=== PATIENT | male | born 1935 | race Caucasian/White ===

== ENCOUNTER 2019-04-20 07:41 | Inpatient (IN) ==
--- NOTE | 2019-04-20 08:59 | Diag Imaging Result Doc PS360 ---
EXAM: FLAT/UPRIGHT ABD/1 VIEW CHEST HISTORY: possible bowel obstruction TECHNIQUE: Three views COMPARISON: 06/05/2018 FINDINGS: Poor inspiratory effort. The heart is not enlarged. The right portacatheter. No free air beneath the diaphragm. There are multiple air distended loops of bowel in the mid lower abdomen and pelvis. No organomegaly. There are surgical clips in the right upper quadrant. IMPRESSION: Bowel obstruction Electronically signed by Logan Parker 04/20/2019 8:57 AM
[2019-04-20 09:14] LABS: BASO# 0.01 X1000 (0.0-0.2); BASO% 0.2 % (0.0-0.8); HEMATOCRIT 49.7 % (42.0-52.0); HEMOGLOBIN 16.5 g/dL (14.0-18.0); LYMPH% 10.1 % (20.5-51.1); MCH 29.9 PG (27-31); MCHC 33.2 g/dL (33-37); MCV 90.2 FL (81-99); MONO# 1.77 X1000 (0.11-0.59); MONO% 29.8 % (1.7-9.3); MPV 10.5 FL (7.4-10.4); NEUT# 3.56 X1000 (1.4-6.5); NEUT% 59.9 % (42.2-75.2); PLT 196 X1000 (130-400); RBC 5.51 XMIL (4.7-6.1); RDW 18.4 % (11.5-14.5); WBC 5.94 X1000 (4.8-10.8)
[2019-04-20] MEDS ORDERED: NS 1,000 ML IV ONE ×2 (09:16→10:08)
[2019-04-20] MEDS ORDERED: ZOSYN 3.375 GM in NS 50 ML IV ONE (09:16)
[2019-04-20 09:45] LABS: ALB/GLOB RATIO 1.5; ALBUMIN 4.5 g/dL (3.5-5.0); CALCIUM 9.4 mg/dL (8.8-10.2); CREATININE 1.9 mg/dL (0.7-1.2); TOTAL BILIRUBIN 0.9 mg/dL (0.20-1.00); TOTAL PROTEIN 7.5 g/dL (6.3-8.3)
[2019-04-20 09:55] LABS: URINE SOURCE CATH
[2019-04-20 10:05] LABS: BILIRUBIN URINE NEGATIVE (NEGATIVE); BLOOD URINE LARGE (NEGATIVE); COLOR YELLOW; GLUCOSE URINE NEGATIVE (NEGATIVE); KETONE URINE NEGATIVE (NEGATIVE); LEUKOCYTES URINE NEGATIVE (NEGATIVE); NITRITE URINE NEGATIVE (NEGATIVE); PROTEIN URINE 50 mg/dL (NEGATIVE); SP GRAVITY URINE 1.024; TURBIDITY URINE TURBID (CLEAR); UROBILINOGEN URINE 2 mg/dL (NORMAL)
[2019-04-20 10:09] LABS: UR EPITHELIAL CELLS <10 /HPF (<10); URINE BACTERIA NEGATIVE /HPF; URINE RBC TNTC /HPF (<10); URINE WBC <10 /HPF (<10)
[2019-04-20 10:10] LABS: PTT 69.5 Seconds (22.3-41.8)
[2019-04-20 10:15] LABS: INR 5.64; PROTIME 53.1 Seconds (11.0-16.0)
[2019-04-20 10:15] LABS: URINE CASTS NONE SEEN
[2019-04-20 10:21] LABS: BANDS 34 % (0-1); LYMPHS 24 % (21-51); MONO 16 % (1-9); SEGS 22 % (42-75)
--- NOTE | 2019-04-20 10:42 | Diag Imaging Result Doc PS360 ---
EXAM: CT ABDOMEN/PELVIS W/O CONTRAST 04/20/2019 HISTORY: bowel obstruction TECHNIQUE: This exam was performed using automated exposure control, adjustment of mA or kV according to patient size, and/or use of iterative reconstruction technique. COMMENT: The current examination is compared with the previous study of 05/21/2018. There is a pleural-based opacity in the posterior right lower lobe which has decreased in size since the previous study. There are also platelike opacities present in both lower lobes which were not present previously. There is some denser consolidation in the left base anteriorly which was not present previously. This may represent atelectasis or pneumonia. There is pneumobilia which was also present previously. There is marked dilatation of the colon with gas and fluid. This was not the case previously. There is also some fluid and solid material within the stomach. There is no evidence of hydronephrosis or stones in the kidneys. The left adrenal gland is enlarged as it was previously. There is gas and fluid in the rectum. The cecum measures over 14.6 cm transversely. There is no evidence of bowel wall thickening or mucosal fold thickening. There are multiple distended small bowel loops including the terminal ileum. This is likely a result of the colonic stasis. There is no evidence of acute bony abnormality. IMPRESSION: Colonic ileus. Electronically signed by Kp Gold 04/20/2019 10:39 AM
--- NOTE | 2019-04-20 11:09 | Diag Imaging Result Doc PS360 ---
EXAM: CHEST/ABD TUBE PLACEMENT HISTORY: NG placement verification TECHNIQUE: Chest abdomen single view COMPARISON: 04/20/2019 FINDINGS: A nasogastric tube has been placed since the prior exam. This passes through the esophagus and enters the stomach. No free air beneath the diaphragm. There are dilated loops of bowel in the upper abdomen. IMPRESSION: Nasogastric tube overlies the stomach Electronically signed by Logan Parker 04/20/2019 11:07 AM
--- NOTE | 2019-04-20 11:21 | EKG Report ---
Test Performed on : 04/20/2019 08:15:26 AM Test Reason : ED. NO order in [place] Blood Pressure : / mmHG Vent. Rate : 078 BPM Atrial Rate : 129 BPM P-R Int : 000 ms QRS Dur : 096 ms QT Int : 384 ms P-R-T Axes : 000 004 134 degrees QTc Int : 437 ms Atrial fibrillation. with premature ventricular or aberrantly conducted complexes. Inferior infarct , age undetermined ST & T wave abnormality, consider lateral ischemia Abnormal ECG When compared with ECG of 07-MAY-2018 11:06, T wave inversion now evident in Lateral leads Unconfirmed Result
[2019-04-20] MEDS ORDERED: NS 2,000 ML IV ONE (11:29)
[2019-04-20] MEDS ORDERED: ZOFRAN IV PRN (11:29)
--- NOTE | 2019-04-20 14:41 | PROVIDER DOCUMENTATION ---
This chart was entered by Tessa Golden Scribe, acting as scribe for Leilani Cantrell MD. HPI-Abdominal Pain/GI Problem - General Chief Complaint: Abdominal Pain Stated Complaint: abd pain Time Seen by Provider: 04/20/19 08:00 Source: patient Allergies/Adverse Reactions: Patient Allergies Allergy/AdvReac Type Severity Reaction Status Date / Time No Known Allergies Allergy Verified 05/06/17 14:19 Home Medications: Home Medication List Medication Instructions Recorded Confirmed Last Taken Type Alprazolam [Xanax] 1 mg PO BID 02/05/13 04/20/19 04/20/19 07:00 History 1 mg Celecoxib [Celebrex] 1 cap PO DAILY 02/05/13 04/20/19 04/20/19 07:00 History 1 cap Dutasteride [Avodart] 1 cap PO DAILY 02/05/13 04/20/19 04/20/19 07:00 History 1 cap Losartan/Hctz [Hyzaar 100/12.5 mg 0.5 tab PO DAILY 02/05/13 04/20/19 04/20/19 07:00 History Tab] 1/2 tab Tamsulosin [Flomax] 0.4 mg PO DAILY #30 capsule 02/06/13 04/20/19 04/20/19 07:00 Rx 1 cap Cyanocobalamin (Vitamin B-12) 1,000 mcg PO DAILY 04/20/19 04/20/19 04/20/19 07 :00 History [B-12] 1 tab Fish Oil/Dha/Epa [Fish Oil 1,200 1 ea PO BID 04/20/19 04/20/19 04/20/19 07:00 History mg Fish Oil] 1 cap Multivitamin [Multi-Vitamin Daily] 1 tab PO DAILY 04/20/19 04/20/19 04/20/19 07:00 History 1 tab Phytonadione (Vit K1) [Vitamin K] 100 mcg PO DAILY 04/20/19 04/20/19 04/20/19 07:00 History 1 cap Polyethylene Glycol 3350 [Miralax] 17 gm PO DAILY 04/20/19 04/20/19 04/20/19 07:00 History 1 capful Tramadol HCl 50 mg PO Q4-6H PRN PRN 04/20/19 04/20/19 Unknown History Vit B Comp with C/Calcium Carb 1 ea PO DAILY 04/20/19 04/20/19 04/20/19 07:00 History [Gnp B-Complex Tablet] 1 cap Warfarin Sodium 2 mg PO DIRECTED 04/20/19 04/20/19 04/19/19 21:00 History 2 mg Warfarin Sodium 3 mg PO DIRECTED 04/20/19 04/20/19 04/18/19 21:00 History 3 mg Zinc Gluconate [Zinc] 100 mg PO BID 04/20/19 04/20/19 04/20/19 07:00 History 100 mg - History of Present Illness-ABD Nature of Presenting Problems: Patient is a 83 year old male who presents to the ED via EMS with generalized abdominal pain. History of constipation. Reports taking a laxative yesterday due to constipation then started having diarrhea after. Denies nausea and vomiting. Abdominal Pain Onset Location: reports: generalized abdomen Pain Radiation: reports: no radiation Quality of Pain: reports: cramping, fullness Severity in ED: reports: moderate Onset/Duration: reports: 24 hours ago Timing: reports: still present Activities at Onset: reports: light activity Associated Symptoms: reports: diarrhea. denies: nausea, vomiting Rectal Bleeding: reports: none Bruising or Bleeding Gums?: No Similar Symptoms Previously?: Yes Recently seen or treated by another doctor?: No Review of Systems - Adult - REVIEW OF SYSTEMS - ADULT Constitutional: reports: no symptoms reported Eyes: reports: no symptoms reported Ears, Nose, Mouth & Throat: reports: no symptoms reported Cardiovascular: reports: no symptoms reported Respiratory: reports: no symptoms reported Gastrointestinal: reports: see HPI, abdominal pain, diarrhea. denies: nausea, vomiting Genitourinary: reports: no symptoms reported Musculoskeletal: reports: no symptoms reported Integumentary: reports: no symptoms reported Neurological: reports: no symptoms reported Psychiatric: reports: no symptoms reported Endocrine: reports: no symptoms reported Hematologic/Lymphatic: reports: no symptoms reported Allergic/Immunologic: reports: no symptoms reported All Other Systems: Reviewed and Negative Past History - Adult - PAST MEDICAL HISTORY-ADULT Review of Records: reports: Old Records Reviewed, Nursing Assessment Review, Medications Reviewed, Social history reviewed & non-contributory. Major Childhood Illnesses: reports: denies history Cardiovascular: reports: A-Fib, HTN, hyperlipidemia Respiratory: reports: denies history Gastrointestinal: reports: GERD Obstetrical/Gynecological: reports: denies history Genitourinary: reports: kidney stones Musculoskeletal: reports: denies history Neurological: reports: denies history Psychiatric: reports: denies history Endocrine/Immune: reports: denies history Other Conditions: reports: denies history - PRIOR SURGERIES/PROCEDURES Surgical/Procedure History: reports: reviewed, not pertinent, cholecystectomy - IMMUNIZATION STATUS Childhood Immunizations: See Nurse Assessment Flu Vaccine: See Nurse Assessment - FAMILY HISTORY Family History: reviewed, not pertinent - SOCIAL HISTORY Smoking: chew, greater than 1 pack/day Provider spent 3-5 mins advising pt. on dangers of tobacco.: Discussed manners to quit use, and f/u contacts for add'l counseling. Substance Use: denies Physical Exam-General - PHYSICAL EXAM-ADULT Initial Vital Signs Reviewed: Yes - CONSTITUTIONAL General Appearance: mild distress, lethargic. negative: obtunded - HEAD, EARS, NOSE, MOUTH & THROAT HENMT: normocephalic/atraumatic, other (dry mucous membranes). negative: angioedema - RESPIRATORY Respiratory: chest non-tender, lungs clear, normal breath sounds. negative: crackles, wheezing - CARDIOVASCULAR Cardiovascular: normal peripheral pulses, regular rate, rhythm. negative: tachycardia - GASTROINTESTINAL (ABDOMEN) Abdominal Exam: normal bowel sounds, distended, tenderness (diffuse). negative: mass - MUSCULOSKELETAL Extremity: normal inspection. negative: deformity, pedal edema - SKIN Integumentary: normal color, normal turgor, warm/dry. negative: diaphoresis, pallor - PSYCHIATRIC Psych/Mental Status: other (lethargic). negative: normal mood/affect, anxious Progress - PLAN OF CARE/RESULTS Progress/Plan/Lab Results: Vital Signs - 8 hr 04/20/19 07:47 Temperature 98.9 F Pulse Rate 91 H Respiratory Rate 16 Blood Pressure 84/61 O2 Sat by Pulse Oximetry 94 L Laboratory Results - last 24 hr 04/20/19 04/20/19 04/20/19 08:10 08:10 08:10 WBC 5.94 RBC 5.51 Hgb 16.5 Hct 49.7 MCV 90.2 MCH 29.9 MCHC 33.2 RDW Std Deviation 18.4 H Plt Count 196 MPV 10.5 H Immature Gran % (Auto) 0.0 Neut % (Auto) 59.9 Lymph % (Auto) 10.1 L [place] % (Auto) 29.8 H Eos % (Auto) 0.0 Baso % (Auto) 0.2 Immature Gran # (Auto) 0.00 Neut # (Auto) 3.56 Lymph # (Auto) 0.60 L [place] # (Auto) 1.77 H Eos # (Auto) 0.00 Baso # (Auto) 0.01 PTT (Actin FS) Sodium 137 Potassium 3.0 L Chloride 95 L Carbon Dioxide 19 L Anion Gap 23 BUN 54 H Creatinine 1.9 H Estimated GFR/1.73 m2 34 BUN/Creatinine Ratio 28 Glucose 163 H Calculated Osmolality 292 Calcium 9.4 Total Bilirubin 0.90 AST 54 H ALT 39 Alkaline Phosphatase 67 Creatine Kinase 119 Troponin T Total Protein 7.5 Albumin 4.5 Globulin 3.0 Albumin/Globulin Ratio 1.5 Plasma Lactate 4.3 H* Urine Source Urine Color Urine Turbidity Urine pH Ur Specific [place] Urine Protein Ur Glucose (Stick) Ur Ketones (Stick) Urine Blood Urine Nitrite Urine Bilirubin Urobilinogen Dipstick Urine Leukocytes Urine WBC (Auto) Urine RBC (Auto) U Epithel Cells (Auto) Urine Bacteria (Auto) 04/20/19 04/20/19 04/20/19 08:10 08:10 09:41 WBC RBC Hgb Hct MCV MCH MCHC RDW Std Deviation Plt Count MPV Immature Gran % (Auto) Neut % (Auto) Lymph % (Auto) [place] % (Auto) Eos % (Auto) Baso % (Auto) Immature Gran # (Auto) Neut # (Auto) Lymph # (Auto) [place] # (Auto) Eos # (Auto) Baso # (Auto) PTT (Actin FS) 69.5 H Sodium Potassium Chloride Carbon Dioxide Anion Gap BUN Creatinine Estimated GFR/1.73 m2 BUN/Creatinine Ratio Glucose Calculated Osmolality Calcium Total Bilirubin AST ALT Alkaline Phosphatase Creatine Kinase Troponin T < 0.010 Total Protein Albumin Globulin Albumin/Globulin Ratio Plasma Lactate Urine Source CATH Urine Color YELLOW Urine Turbidity TURBID Urine pH 5.0 Ur Specific [place] 1.024 Urine Protein 50 A Ur Glucose (Stick) NEGATIVE Ur Ketones (Stick) NEGATIVE Urine Blood LARGE A Urine Nitrite NEGATIVE Urine Bilirubin NEGATIVE Urobilinogen Dipstick 2 A Urine Leukocytes NEGATIVE Urine WBC (Auto) <10 Urine RBC (Auto) TNTC A U Epithel Cells (Auto) <10 Urine Bacteria (Auto) NEGATIVE Orders Category Date Time Status Cardiac Monitoring DIRECTED Care 04/20/19 08:03 Active IV Insertion ORDERED Care 04/20/19 08:03 Active NG/OG/Feeding Tube Insertion ORDERED Care 04/20/19 09:31 Active Notify MD of + Sepsis Screen NOW Care 04/20/19 08:[address] ABDOMEN/PELVIS W/O CONTRAST [CT] Stat Exams 04/20/19 09:15 Ordered FLAT/UPRIGHT ABD/1 VIEW CHEST [RAD] Stat Exams 04/20/19 08:03 Completed BLOOD CULTURE [BLDCUL] Stat Lab 04/20/19 08:25 Results CBC WITH DIFF [HEME] Stat Lab 04/20/19 08:10 Results CK PROFILE [SP CHEM] Stat Lab 04/20/19 08:10 Completed COMPREHENSIVE METABOLIC PANEL [CHEM] Stat Lab 04/20/19 08:10 Completed LACTATE, PLASMA [CHEM] Lab 04/20/19 11:15 Uncollected LACTATE, PLASMA [CHEM] Lab 04/20/19 14:15 Uncollected LACTATE, PLASMA [CHEM] Q3H Lab 04/20/19 08:10 Completed PROTIME WITH INR [COAG] Stat Lab 04/20/19 08:10 Results PTT [COAG] Stat Lab 04/20/19 08:10 Results TROPONIN T Stat Lab 04/20/19 08:10 Completed URINALYSIS W/POSS RFLX CULT [URINALYSIS] Stat Lab 04/20/19 09:41 Results URINE MANUAL MICROSCOPIC [URINALYSIS] Stat Lab 04/20/19 09:41 Results 0.9% Sodium Chloride Inj [Ns] 1,000 ml Med 04/20/19 09:16 Active IV 999 mls/hr 0.9% Sodium Chloride Inj [Ns] 1,000 ml Med 04/20/19 10:08 Active IV 999 mls/hr Piperacillin/Tazobactam [Zosyn] 3.375 gm Med 04/20/19 09:16 Discontinued 0.9% Sodium Chloride Inj [Ns] 50 ml IV NOW Oxygen Device Stat Oth 04/20/19 08:03 Active Result Diagrams: 04/20/19 08:10 04/20/19 08:10 - EKG 1 Time of EKG reading by physician:: 08:15 EKG Read and Signed by:: Leilani Cantrell EKG Interpretation (*Must complete 3 of following elements*): Abnormal (rhythm - atrial fibrillation with premature ventricular or aberrantly conducted complexes; ST & T wave abnormality, consider lateral ischemia) Rate: 78 [place]: normal Comments: inferior infarct, age undetermined; - XRAY 1 XRAY Study: Chest, Abdomen Impression: See EMR Report (EXAM: FLAT/UPRIGHT ABD/1 VIEW CHEST HISTORY: possible bowel obstruction TECHNIQUE: Three views COMPARISON: 06/05/2018 FINDINGS: Poor inspiratory effort. The heart is not enlarged. The right portac atheter. No free air beneath the diaphragm. There are multiple air distended loops of bowel in the mid lower abdomen and pelvis. No organomegaly. There are surgical clips in the right upper quadrant. IMPRESSION: Bowel obstruction Electronically signed by Logan Parker 04/20/2019 8:57 AM 04/20/19 0857 Interpreting Physician: Logan Parker MD Dictated Date/Time: 04/20/19 0856 cc: Leilani Cantrell MD; Hua Stewart MD) 2 XRAY Study: Chest, Abdomen (tube placement) Impression: See EMR Report ( EXAM: CHEST/ABD TUBE PLACEMENT HISTORY: NG placement verification TECHNIQUE: Chest abdomen single view COMPARISON: 04/20/2019 FINDINGS: A nasogastric tube has been placed since the prior exam. This passes through the esophagus and enters the stomach. No free air beneath the diaphragm. There are dilated loops of bowel in the upper abdomen. IMPRESSION: Nasogastric tube overlies the stomach Electronically signed by Logan Parker 04/20/2019 11:07 AM 04/20/19 1107 Interpreting Physician: Logan Parker MD Dictated Date/Time: 04/20/19 1107 cc: Leilani Cantrell MD; Hua Stewart MD) - CT/MRI 1 CT Study: Abdomen, Pelvis Impression: See EMR Report (Signed EXAM: CT ABDOMEN/PELVIS W/O CONTRAST 04/20/2019 HISTORY: bowel obstruction TECHNIQUE: This exam was performed using automated exposure control, adjustment of mA or kV according to patient size, and/or use of iterative reconstruction technique. COMMENT: The current examination is compared with the previous study of 05/21/2018. There is a pleural-based opacity in the posterior right lower lobe which has decreased in size since the previous study. There are also platelike opacities present in both lower lobes which were not present previously. There is some denser consolidation in the left base anteriorly which was not present previously. This may represent atelectasis or pneumonia. There is pneumobilia which was also present previously. There is marked dilatation of the colon with gas and fluid. This was not the case previously. There is also some fluid and solid material within the stomach. There is no evidence of hydronephrosis or stones in the kidneys. The left adrenal gland is enlarged as it was previously. There is gas and fluid in the rectum. The cecum measures over 14.6 cm transversely. There is no evidence of bowel wall thickening or mucosal fold thickening. There are multiple distended small bowel loops including the terminal ileum. This is likely a result of the colonic stasis. There is no evidence of acute bony abnormality. IMPRESSION: Colonic ileus. Electronically signed by Kp Gold 04/20/2019 10:39 AM 04/20/19 1039 Interpreting Physician: Kp Gold MD Dictated Date/Time: 04/20/19 1034 cc: Leilani Cantrell MD; Hua Stewart MD) - CONSULTS/PCP/HOSPITALIST Notification #1 *Consult/PCP/Hospitalist*: Dr. Stewart Time Discussed: 11:09 Reason/Comments: Dr. Cantrell consulted with Dr. Stewart about patient. Consult Disposition: Will see in ED, Admit Departure - Departure Date of Disposition Decision: 04/20/19 Time of Disposition Decision: 11:09 DIAGNOSIS: Colonic inertia Disposition: ADMITTED INPATIENT 09 Certified Medical Emergency: Emergent Condition: Stable Referrals and Follow-Ups: Hua Stewart MD [Primary Care Provider] - - Critical Care Note This patient required my direct & personal management of CC.: No Attestation - Physician/ [place] Attestation The physician spent face to face time with patient:: Yes Advanced Practice Provider documentation review:: Supervising physician onsite and consulted in the evaluation and care of this patient. The physician did have a face to face encounter with the patient. This chart was documented by the indicated scribe, (Tessa Golden Scribe) and accurately reflects the services I performed and decisions made by me, Leilani Cantrell MD, as attested by the provider's signature.
[2019-04-20] MEDS ORDERED: POTASSIUM CHLORIDE 40 MEQ/SWI 40 MEQ/100 ML IVPB IV ONE (21:25)
[2019-04-20] MEDS: MAGNESIUM SULFATE 2 GM/S.W.I. 2 GM/50 ML IVPB IV ONE (23:18)
[2019-04-21] MEDS: MAGNESIUM SULFATE 2 GM/S.W.I. 2 GM/50 ML IVPB IV ONE (01:19)
[2019-04-21 07:40] LABS: AGAP 16; ALB/GLOB RATIO 1.4; ALBUMIN 3.8 g/dL (3.5-5.0); ALKALINE PHOSPHATASE 57 U/L (32-122); BUN 67 mg/dL (8-22); CHLORIDE 103 mmol/L (98-107); COSMO 300; ESTIMATED GFR > 60; GLUCOSE 129 mg/dL (70-104); GOT 40 U/L (10-34); GPT 32 U/L (10-44); SODIUM 140 mmol/L (136-145); TCO2 21 mmol/L (25-35); TOTAL BILIRUBIN 0.75 mg/dL (0.20-1.00); TOTAL PROTEIN 6.6 g/dL (6.3-8.3)
[2019-04-21 07:59] LABS: POTASSIUM 2.5 mmol/L (3.5-5.1)
[2019-04-21 08:13] LABS: HEMATOCRIT 45.3 % (42.0-52.0); HEMOGLOBIN 15.3 g/dL (14.0-18.0); IMM GRAN# 0.04 X1000 (0.0-0.04); IMM GRAN% 0.6 % (0.0-0.5); LYMPH# 0.95 X1000 (1.2-3.4); LYMPH% 13.8 % (20.5-51.1); MCHC 33.8 g/dL (33-37); MCV 88.8 FL (81-99); MONO% 21.8 % (1.7-9.3); MPV 10.5 FL (7.4-10.4); NEUT# 4.39 X1000 (1.4-6.5); NEUT% 63.8 % (42.2-75.2); PLT 149 X1000 (130-400); RDW 18.3 % (11.5-14.5); WBC 6.88 X1000 (4.8-10.8)
[2019-04-21 08:37] LABS: BANDS 18 % (0-1); LYMPHS 34 % (21-51); MONO 10 % (1-9); SEGS 34 % (42-75)
[2019-04-21] MEDS ORDERED: NS 3,000 ML IV ONE (09:27)
[2019-04-21] MEDS: POTASSIUM CHLORIDE 60 MEQ in NS 500 ML IV SCH ×2 (09:54→16:50)
--- NOTE | 2019-04-21 11:40 | Diag Imaging Result Doc PS360 ---
EXAM: FLAT/UPRIGHT ABD/1 VIEW CHEST 04/21/2019 HISTORY: ileus TECHNIQUE: Flat and upright abdomen and AP upright chest COMMENT: There is a fairly large amount of colonic gas. This was also present previously on 04/20/2019. The cecum measures over 15 cm in transverse dimension. IMPRESSION: Colonic ileus. Electronically signed by Kp Gold 04/21/2019 11:38 AM
--- NOTE | 2019-04-21 12:37 | PROGRESS NOTE ---
DATE: 04/21/2019 SUBJECTIVE: The patient and family states that he is somewhat better today. He continues to have a fairly copious or rectal output of liquid contents. He denies any abdominal pain. OBJECTIVE: Vital Signs: 98.1, 91, 20, 153/99, and 100% saturated on room air. General: The patient is awake and alert. He is in no distress. Lungs: Clear to auscultation. Cardiovascular: Irregularly irregular at approximately 90 beats per minute. Abdomen: Shows reduction in the overall girth. The texture of the abdominal wall is much looser, but it is still distended. He has very little in the way of bowel sounds which are actually barely detectable. He is nontender in any of the quadrants. LABORATORY: White cell count 6.8, hemoglobin 15.3, potassium is 2.5, BUN 67, and creatinine 1.0. ASSESSMENT AND PLAN: 1. I am going to consult Dr. Antunez and Dr. Colon for possible colonic obstruction. There was no mention of the patient's rectal mass in the CT scan from yesterday. The initial CT scan did show that is obstructed 75 to 90 percent of the lumen at the proximal rectosigmoid junction. Dr. Antunez's notes do not really reflect any progression or regression with treatment. If the patient's symptoms do not resolve after being treated as an ileus, we may have to consider the possibility of diverting colostomy. 2. Inexplicably. The patient's potassium is down from yesterday despite getting magnesium and potassium through the IV. I have written for more IV riders to be given today to try and correct that. I am sure the liquid stool output has contributed to this as well. 3. The patient's creatinine is markedly improved, but unfortunately the BUN is elevated. This could be indicative of GI bleed. We did note that the patient's ProTime and INR were elevated on admission. We will recheck this tomorrow. His anticoagulants have been held. 4. DNR level 1. 5. Atrial fibrillation, stable. 6. Metabolic syndrome. We are aware and following. cc: Hua Stewart MD
[2019-04-21] MEDS ORDERED: CALMOSEPTINE OINTMENT TOP PRN (13:25)
[2019-04-21] MEDS: NS 1,000 ML IV SCH (13:46)
--- NOTE | 2019-04-21 15:02 | HISTORY AND PHYSICAL ---
CHIEF COMPLAINT: Abdominal distention. HISTORY OF PRESENT ILLNESS: This 83-year-old white male has multiple medical problems, which will be delineated below. Last Saturday, the patient began to have a sensation of constipation and took a laxative. His abdomen began to swell and despite the urging of his family he refused to come in. Instead, he was incapacitated by Saturday morning, and they had to call an ambulance to bring him to the hospital. Initial evaluation by the ER, found the patient to have a markedly distended abdomen. Flat and upright series showed marked distention of the colon and filled with air with some fluid levels present. CT scan showed no sign of mechanical obstruction, and was most consistent with an ileus, but again the marked distention of the colon was noted. 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 He agreed the patient has not had any fever. He has had no cough, wheezing or shortness of breath. He has had nausea. No vomiting. He has had abdominal distention and pain. They report liquid diarrhea. He is not taking any other medications over- the-counter or otherwise other than his prescription medications. He is not on narcotics to my knowledge. Laboratory studies from the emergency room showed an elevated lactate, and elevated BUN and creatinine, low CO2, and low potassium. He is admitted for ileus and abdominal distention. PAST MEDICAL HISTORY: 1. Hypertension. 2. Hypercholesterolemia. 3. Degenerative arthritis of the hips. 4. Remote history of prostatitis. 5. Atrial fibrillation, chronic with rate control. 6. Chronic anticoagulation. 7. 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 8. Metastatic rectal cancer with single lung nodule being treated by DR. Antunez at present. PAST SURGICAL HISTORY: 1. Right cataract surgery. 2. Laparoscopic cholecystectomy. 3. ERCP with sphincterotomy. PRESENT MEDICATIONS: 1. Avodart 0.5 mg p.o. daily. 2. Celebrex 200 mg p.o. daily. 3. Coumadin 5 mg p.o. at bedtime. 4. Flomax 0.4 mg p.o. daily. 5. Hyzaar 100/12.5 1 p.o. daily. 6. Xanax 1 mg p.o. every morning, 1 p.o. q.8 h. 7. Pravastatin 40 mg p.o. at bedtime. ALLERGIES: No known drug allergies. REVIEW OF SYSTEMS: As stated earlier, there is no fever or chills. The patient's weight has been stable. Patient and family agree there were no ENT complaints such as upper respiratory infection, sore throat etc. He had no cough, wheezing or shortness of breath. He denies any chest pain or palpitations.GI: Tract was described as in the HPI. He denies any gross blood per rectum or black tarry stools. : The patient has had frequent urination, but his pattern of urination has not really changed over this time frame. The patient has no other musculoskeletal or neurological complaints. PHYSICAL EXAMINATION: VITAL SIGNS: Initially, 98.9, 91, 16, 84/61, and 94% saturated on room air. GENERAL: The patient is a very large man who is approximately 6 foot 5 inches or 6 foot 6 inches. He is lying in the bed. He is awake and alert. Does not appear to be in any distress, but his abdomen is markedly swollen. HEENT: Sclerae are anicteric. Oral mucosa is dry, but does not appear parched. NECK: No carotid bruits. LUNGS: Clear to auscultation. CARDIOVASCULAR: Irregularly irregular at approximately 90 beats per minute. ABDOMEN: Markedly distended. Appears firm to the touch. Percussion is tympanic. He has a few rare scattered high pitched bowel sounds present. There is otherwise absence of bowel sounds. He does not seem particularly tender in any one particular place. The exam is not undertaken. EXTREMITIES: No peripheral edema with arthritis in the feet, hands and knees. NEUROLOGICAL: Patient's hearing is bad , speech might sound dysarthric, but this has been present for the 20 plus years that I have known the man. It is just a very odd christopher and method of annunciating his words. He sounds very unintelligible at times as a result. LABORATORY STUDIES: White cell count 5.9, hemoglobin 16.5, and hematocrit 49.7. INR is 5.64. Sodium 137, potassium 3.0, BUN 54, creatinine 1.9, glucose 163, and AST is 54. CK and troponin were negative. Plasma lactate was initially 4.3 and later rechecked at 2.7. Urinalysis showed large urine blood, but no evidence of infection. ASSESSMENT AND PLAN: 1. The patient will be admitted to the hospital. NG tube will be placed on low intermittent suction. Hopefully, we can decompress this ileus. We have to consider the fact that the patient also has a rectal carcinoma and possibility of mechanical obstruction cannot be overall ruled. This did not appear to be the case on CT scan, but that does not always tell the whole story. There are no obvious signs of infection which could lead to a garden- variety ileus. We will recheck lab work, and a KUB in the morning. 2. The patient is markedly dehydrated despite the fact that he was immobilized and not eating very much. He continued to take his blood pressure medication which contains diuretic. This would account for his elevated BUN and creatinine, which is roughly doubled his last one recorded in the computer. I will have to check my records to confirm his baseline creatinine. We have given him a 2 L bolus of fluids, and will have continuous fluids going as well and recheck those levels in the morning. At the time of my examination, later on the afternoon of his admission, the patient's blood pressures are already improved considerably, and his family commented that he seemed much better with just the addition of fluids although the abdominal distention and watery output had not subsided. 3. The patient has atrial fibrillation. He is over anticoagulated. His medications will be held for the present time, and we will add those back as appropriate and necessary. 4. Patient's nerve medication will be given in an IV format. 5. The family member with the patient stated that they had durable power of assistant district attorney. It had been discussed about the patient's living will, and he does not want to be on a ventilator. We have made him a DNR level 1. 6. Most likely, the patient will be discharged to home at the end of this hospitalization. cc: Hua Stewart MD
--- NOTE | 2019-04-22 02:48 | CONSULTATION ---
DATE OF CONSULTATION: 04/21/2019 HISTORY OF PRESENT ILLNESS: Mr. Gurdeep Nicholas is an 83-year-old white male, patient of Dr. Ike Stewart, who several years ago I performed a laparoscopic cholecystectomy. Since that time, he has been diagnosed with metastatic rectal cancer. Evidently he has a rectal cancer at the rectosigmoid junction with metastases to his lung. He is being treated by Dr. Antunez. He was admitted with dehydration and abdominal distention. CT scan documented significant dilatation of his colon, which could be related to his rectal mass. We were asked to evaluate him. PAST MEDICAL HISTORY: Laparoscopic cholecystectomy with ERCP and sphincterotomy, right cataract surgery, hypertension, hypercholesterolemia, degenerative arthritis of the hips, prostatitis, chronic atrial fibrillation with rate control, chronic anticoagulation related to his atrial fibrillation, metabolic syndrome bordering on diabetes, and metastatic rectal cancer. MEDICATIONS: 1. Avodart. 2. Celebrex. 3. Coumadin. 4. Flomax. 5. Hyzaar. 6. Xanax. 7. Pravastatin. ALLERGIES: No known drug allergies. SOCIAL HISTORY: He lives at home with a girlfriend. One of his neighbors was at the bedside. FAMILY HISTORY: Reviewed as best as I could with the patient and was essentially negative. REVIEW OF SYSTEMS: Performed, he has had no significant weight loss, seemed to have been eating well prior to this episode. His weight has been stable. A 14-point review of systems was reviewed with the patient as best as possible and was essentially negative. PHYSICAL EXAMINATION: General: Mr. Nicholas is an elderly white male who is difficult to understand. HEENT: He has an NG tube in place. He has no jaundice. No oral lesions. Lymphatic: No cervical or supraclavicular lymphadenopathy. Cardiovascular: His heart has an irregular rate. Lungs: Essentially clear to auscultation and percussion bilaterally. Gastrointestinal: His abdomen was somewhat protuberant, but not tightly distended. There was no tenderness, no costovertebral tenderness. Rectal exam was not performed at this exam. He does have palpable femoral pulses. Extremities: He had no significant peripheral edema. Neurological: No focal deficit. DIAGNOSTIC STUDIES: His potassium is low but that is being corrected. I reviewed his CT scan, which showed a dilated colon throughout its length. He did have fluid and air in his rectum. IMPRESSION: Metastatic rectal cancer, rectosigmoid junction with dilatation of the entire length of the colon. Possible partial obstruction versus colonic ileus. The patient does have to take chronic laxatives. His cancer is being treated by Dr. Antunez and I do not know the details of that treatment. Clinically, it sounds like he has improved since his admission with decreased abdominal distention and he reports multiple bowel movements and flatus per rectum throughout the day. PLAN: I think if he continues to clinically improve we can remove his NG tube and begin a diet. I agree with Dr. Stewart that if his obstruction does not improve and it is related to his cancer, it would have to be resected. cc: MD Hua Brewster MD
[2019-04-22] MEDS: NS 1,000 ML IV SCH ×2 (06:15→16:52)
[2019-04-22 07:04] LABS: HEMATOCRIT 44.1 % (42.0-52.0); HEMOGLOBIN 14.8 g/dL (14.0-18.0); LYMPH# 0.67 X1000 (1.2-3.4); LYMPH% 10.2 % (20.5-51.1); MCH 30.4 PG (27-31); MCHC 33.6 g/dL (33-37); MCV 90.6 FL (81-99); MONO# 1.15 X1000 (0.11-0.59); MONO% 17.4 % (1.7-9.3); MPV 10.8 FL (7.4-10.4); NEUT# 4.78 X1000 (1.4-6.5); NEUT% 72.4 % (42.2-75.2); PLT 160 X1000 (130-400); RBC 4.87 XMIL (4.7-6.1)
[2019-04-22 07:25] LABS: ESTIMATED GFR > 60
[2019-04-22 07:27] LABS: AGAP 13; BUN 56 mg/dL (8-22); CALCIUM 7.5 mg/dL (8.8-10.2); CHLORIDE 112 mmol/L (98-107); COSMO 308; CREATININE 0.7 mg/dL (0.7-1.2); GLUCOSE 136 mg/dL (70-104); MAGNESIUM 2.8 mg/dL (1.5-2.7); POTASSIUM 2.6 mmol/L (3.5-5.1); SODIUM 146 mmol/L (136-145); TCO2 21 mmol/L (25-35)
[2019-04-22] MEDS ORDERED: MAGNESIUM SULFATE 2 GM/S.W.I. 2 GM/50 ML IVPB IV ONE (09:44)
[2019-04-22 09:46] LABS: PTT 73.9 Seconds (22.3-41.8)
[2019-04-22 10:11] LABS: INR 8.47; PROTIME 73.5 Seconds (11.0-16.0)
[2019-04-22] MEDS: POTASSIUM CHLORIDE 40 MEQ/SWI 40 MEQ/100 ML IVPB IV SCH ×2 (10:32→17:44)
--- NOTE | 2019-04-22 12:30 | PROGRESS NOTE ---
DATE: 04/22/2019 SUBJECTIVE: The patient and family member states that he is much improved. He is hungry. I discussed with Dr. Colon's consult with the family and stressed the fact that this appears to be resolving, but if it does not or we have to go back to the NG tube, he may need a colon resection with colostomy. OBJECTIVE: Vital signs: Temperature 97.2, 82, 18, blood pressure 178/74, 96% saturated on room air. General: The patient is alert. Seems oriented. Communication is difficult due to his speech. Lungs: Clear to auscultation. Cardiovascular: Regularly irregular. Abdomen: Shows decreased distention, although he is still distended and air filled. He has much more in the way of bowel sounds, particularly with palpation, but the bowel sounds are high pitched indicating continued tension in the colonic wall. Overall, his exam is much improved from admission. LABORATORY DATA: White cell count 6.6, hemoglobin 14.8, potassium 2.6, CO2 21, BUN 56, creatinine 0.7, glucose 136, magnesium is 2.8. ASSESSMENT AND PLAN: 1. The patient's colonic ileus or obstruction seems to be resolving. I plan to pull the NG tube and try the patient on clear liquids and restart some of his home medications and see how he does. 2. Dr. Antunez's team saw the patient today. We will see if there is anything else to add to the treatment plan based on that consultation. 3. Potassium is still incredibly low despite repletion. Magnesium is normal to high. I plan to replete this again by intravenous means, maybe removing the NG tube and slowing down his stooling will improve the potassium as well. I suspect the initial culprit was driven by the hydrochlorothiazide and his blood pressure medication. We are not starting that back yet. 4. The patient's creatinine has recovered. BUN is still slightly elevated. 5. Atrial fibrillation, stable. 6. Metabolic syndrome, stable. 7. Hypertension. We are gong to start the patient back on Flomax and Avodart as well as his Xanax and see what happens to his blood pressure before restarting actual antihypertensive medication. 8. Do not resuscitate level 1. cc: Hua Stewart MD
--- NOTE | 2019-04-22 16:14 | HEMO/ONC CONSULTATION ---
DATE: 04/22/2019 REASON FOR CONSULTATION: He is a known patient of ours with the treatment of metastatic rectal carcinoma. HISTORY OF PRESENT ILLNESS: Mr. Nicholas is an 83-year-old male with multiple medical problems to include metastatic rectal carcinoma. Last Saturday the patient states he began to have a sensation of constipation and took a laxative. His abdomen began to swell. By Saturday he was unable to walk, and they had to call an ambulance to bring him to the hospital. Upon evaluation in the ER, the patient had a markedly distended abdomen. Flat and upright series show marked distention of the colon filled with air and some fluid levels present. CT scan showed no sign of mechanical obstruction and was most consistent with an ileus, but again, the marked distention of the colon was noted. The patient denies any fever. He states since he has been in the hospital, he has continued to have several bowel movements a day. They are small in volume. He states that some of them have watery and almost clear as water. His abdomen is greatly decreased in distention, but still full. He denies any pain with palpation. The patient is known to complain of constipation and take a laxative and then take Imodium when he thinks he is having too many bowel movements. He rotates between these 2 medicines despite education and reeducation. The patient is very difficult to communicate with due to very poor hearing. The patient has a speech deficit, which is very difficult to understand at times. His significant other can sometimes translate for him. He was admitted for possible ileus. We treat the patient in the office for metastatic rectal carcinoma. The patient receives treatment with 5-FU and Mvasi. His last treatment was on 04/07/2019. The patient's last PET scan was 03/03/2019, which showed persistent increased activity in the sigmoid colon and foci of new increased activity in the splenic flexure of the colon. The patient is also on Coumadin for atrial fibrillation. We check his PT and INR on a weekly basis. Currently, he takes Coumadin 2 mg Saturday, Saturday and and then 4 mg Saturday through Saturday. The patient is also on Xgeva for bone metastasis. PAST MEDICAL HISTORY: Hypertension, hypercholesterolemia, degenerative arthritis of the hips, remote history of prostatitis, atrial fibrillation that is chronic with rate control on Coumadin, chronic anticoagulation, metabolic syndrome bordering on diabetes, metastatic rectal cancer with single lung nodule under current therapy. PAST SURGICAL HISTORY: Right cataract surgery, laparoscopic cholecystectomy, ERCP with sphincterotomy. ALLERGIES: No known drug allergies. HOME MEDICATIONS: Avodart, Celebrex, Coumadin, Flomax, Hyzaar, Xanax, and pravastatin. REVIEW OF SYSTEMS: Alternating constipation and diarrhea, abdominal distention and pain. PHYSICAL EXAMINATION: Vital Signs: Temperature 97.7 degrees, pulse rate 78, respiratory rate 17, blood pressure 157/71, O2 saturation 98% on room air, 0/10 pain. General: This is a chronically ill elderly gentleman who is difficult to understand, but does not appear to be in any distress. HEENT: Sclerae is anicteric. Oral mucosa is dry. PERRLA. Respiratory: Lungs are clear to auscultation. Normal respiratory effort. Cardiovascular: Irregular rate and rhythm. Gastrointestinal: Abdomen is distended, soft to touch, very hypoactive bowel sounds. Not tender to palpation. Extremities: No lower extremity edema noted. Neurological: The patient is very hard of hearing. Speech is garbled laboratory. DIAGNOSTIC DATA: Laboratory, WBCs 6.6, hemoglobin 14.8, hematocrit 44.1, platelet count 160,000. INR 8.47. Sodium 146, potassium 2.6, creatinine 0.7, calcium 7.5, magnesium 2.8. Radiology, abdominal x-ray shows colonic ileus. ASSESSMENT AND PLAN: 1. Ileus. 2. Metastatic rectal carcinoma. 3. Atrial fibrillation on anticoagulation. PLAN: The patient has an NG tube in place. His abdominal distention has greatly improved since his admission yesterday. He states he has had several bowel movements daily. He is passing flatus. He has no pain in his abdomen at this time. It appears he has been over-anticoagulated. Continue to hold his Coumadin until his INR decreases. Continue to rehydrate the patient, replete his potassium. We will continue to follow and monitor. Dictated by DERRELL Oleary for Porter Antunez MD cc: MD Hua Magallanes MD [facility]PITALFrancie
[2019-04-22] MEDS: XANAX PO SCH (20:57)
[2019-04-23] MEDS: NS 1,000 ML IV SCH (06:56)
[2019-04-23 07:12] LABS: PROTIME 77.2 Seconds (11.0-16.0)
[2019-04-23 07:13] LABS: INR 9.02
[2019-04-23 07:20] LABS: AGAP 11; BUN 40 mg/dL (8-22); CALCIUM 7.6 mg/dL (8.8-10.2); CHLORIDE 116 mmol/L (98-107); COSMO 312; CREATININE 0.7 mg/dL (0.7-1.2); ESTIMATED GFR > 60; GLUCOSE 113 mg/dL (70-104); SODIUM 152 mmol/L (136-145); TCO2 25 mmol/L (25-35)
[2019-04-23 07:27] LABS: POTASSIUM 2.3 mmol/L (3.5-5.1)
[2019-04-23] MEDS ORDERED: VITAMIN K SUBQ ONE (07:40)
[2019-04-23] MEDS: POTASSIUM CHLORIDE 60 MEQ in NS 500 ML IV SCH ×2 (08:14→15:00)
[2019-04-23] MEDS: AVODART PO SCH (08:23)
[2019-04-23] MEDS: FLOMAX PO SCH (08:23)
[2019-04-23] MEDS: XANAX PO SCH ×2 (08:25→20:35)
--- NOTE | 2019-04-23 10:05 | PROGRESS NOTE ---
DATE: 04/23/2019 SUBJECTIVE: The patient complains vociferously about clear liquid diet and stated that he wanted food. He also wanted to know when he could go home. I had discussion with the patient and his family as to the lab values and other physical findings which were keeping him in the hospital. VITAL SIGNS: Temperature 98.0, pulse 68, respirations 19, blood pressure 182/83, 97% saturated on room air. PHYSICAL EXAMINATION: General: The patient is alert, oriented, conversive and appropriate. His speech is difficult to understand. Lungs: Clear. Cardiovascular: Irregularly irregular. Abdomen: Still distended. Bowel sounds are prominent, but still high-pitched as if the colon was distended with air. LABORATORY: INR was 9.02. Potassium 2.3, BUN 40, creatinine 0.7, blood sugar 113. ASSESSMENT AND PLAN: 1. The patient's colonic ileus or obstruction seems to be continuing to resolve. We pulled the NG tube and he is taking p.o. fairly well. Physical exam is improved but he still seems distended compared to baseline. He does not really have any abdominal pain, although he does have occasionally cramps in his abdomen. 2. Inexplicably the patient's potassium was still incredibly low despite multiple efforts at repletion. I really have no explanation for this since he is off of his diuretic and it seems that his bowel output is slowing down. We have also pulled the NG tube, which may have been contributing. 3. The patient's pro-time is still inexplicably going up despite not getting any warfarin for multiple days. The patient's family stated that this has been a problem since he started on chemo. He is still off warfarin. We have given him vitamin K subcu today. 4. The patient's creatinine and BUN have recovered. 5. Atrial fibrillation, stable. 6. Metabolic syndrome, stable. 7. Hypertension. Seems to be accelerating a bit. We are starting back on losartan without the diuretic and monitor his blood pressure. He is back on Flomax and Avodart as well as his Xanax. 8. Do not resuscitate level 1. cc: Hua Stewart MD
[2019-04-23] MEDS: COZAAR PO SCH (10:40)
[2019-04-23] MEDS: CELEBREX PO SCH (10:41)
--- NOTE | 2019-04-23 19:40 | PROGRESS NOTE ---
DATE: 04/23/2019 Mr. Gurdeep Nicholas's colonic ileus appears to have resolved. He has had multiple bowel movements and was sitting up eating his lunch when I went by there today. He has no abdominal pain. His abdomen appears to be soft. I agree with the current care of increasing his diet and activity, in hopes to send him home shortly. cc: MD Hua Brewster MD
[2019-04-24 08:15] LABS: INR 3.67; PROTIME 37.6 Seconds (11.0-16.0)
[2019-04-24 08:16] LABS: ESTIMATED GFR > 60
[2019-04-24 08:23] LABS: AGAP 10; BUN 32 mg/dL (8-22); CALCIUM 7.8 mg/dL (8.8-10.2); CHLORIDE 118 mmol/L (98-107); COSMO 312; CREATININE 0.7 mg/dL (0.7-1.2); GLUCOSE 101 mg/dL (70-104); MAGNESIUM 2.7 mg/dL (1.5-2.7); SODIUM 154 mmol/L (136-145); TCO2 26 mmol/L (25-35)
[2019-04-24 08:24] LABS: POTASSIUM 2.5 mmol/L (3.5-5.1)
[2019-04-24] MEDS ORDERED: VITAMIN K SUBQ ONE (09:30)
--- NOTE | 2019-04-24 10:22 | HEMO/ONC PROGRESS NOTE ---
DATE: 04/24/2019 SUBJECTIVE: Mr. Nicholas is sitting up and comfortable. He is very adamant about going home soon. He has no complaints. His appetite is fine. He had no acute events overnight. He is having multiple bowel movements. OBJECTIVE: Vital Signs: Temperature 97.6 degrees, pulse rate 92, respiratory rate 16, blood pressure 155/87, O2 saturation 96% on room air. He is in 0/10 pain. PHYSICAL EXAMINATION: General: The patient is in no acute distress. HEENT: Sclerae is anicteric. PERRLA. Oral mucosa is normal. Respiratory: Lungs are clear to auscultation. Normal respiratory effort. Cardiovascular: Normal S1, S2. Heart rate and rhythm is regular. Gastrointestinal: Abdomen is slightly distended, nontender. Hyperactive high- pitched bowel sounds noted. Extremities: No lower extremity edema noted. Neurological: Awake, alert, and oriented x3. The patient is very hard of hearing. Speech is garbled. LABORATORY: Sodium 154, potassium 2.5. INR 3.67, calcium 7.8. ASSESSMENT AND PLAN: 1. Ileus. This appears to have resolved. The patient is having multiple bowel movements at this time. He has no problem with his appetite. He denies any abdominal pain. His abdomen is soft. 2. Metastatic rectal carcinoma. We treat the patient for his cancer in the clinic. We will see him back at his next appointment. 3. Atrial fibrillation and anticoagulation. The patient was over anticoagulated. His INR has finally reduced or decreased after being off Coumadin for several days. He was started on subcutaneous vitamin K. Dr. Stewart will determine when to restart his Coumadin and adequate level. We will follow up with him in the office regarding his PT and INR's. 4. Hypokalemia. Patient's potassium has been significantly below. He has been repleted several times. Continue to replete as necessary. 5. Hypernatremia. The patient's sodium has been elevated. Continue to treat per Dr. Stewart. Please call us as needed over the weekend. I suspect that the patient may be going home soon. Dictated by DERRELL Oleary for Porter Antunez MD cc: MD Hua Magallanes MD [facility]ITALFrancie
[2019-04-24] MEDS: FLOMAX PO SCH (10:51)
[2019-04-24] MEDS: COZAAR PO SCH (10:51)
[2019-04-24] MEDS: XANAX PO SCH ×2 (10:51→22:14)
[2019-04-24] MEDS: CELEBREX PO SCH (10:51)
[2019-04-24] MEDS: AVODART PO SCH (10:52)
[2019-04-24] MEDS: ALDACTONE PO SCH (10:57)
[2019-04-24] MEDS: D5 1/4 NS 1,000 ML IV SCH (12:03)
[2019-04-24] MEDS: KLOR-CON PO SCH ×2 (14:22→17:25)
--- NOTE | 2019-04-24 15:07 | PROGRESS NOTE ---
DATE: 04/24/2019 SUBJECTIVE: The patient wants to go home. He is eating fine. He is having some cramping in his muscles and in his stomach. OBJECTIVE: Vital Signs: 97.6, 92, 16, 155/87, 96% saturated on room air. The patient is alert, oriented, conversive and appropriate. Lungs: Clear. Cardiovascular: Irregularly regular. Abdomen: Less distended. Bowel sounds are present. He is soft, is nontender. LABORATORY: INR is down to 3.67. Sodium is up to 154, potassium 2.5, chloride is 118, BUN 32, creatinine 0.7. ASSESSMENT AND PLAN: 1. The patient's colonic ileus or obstructive process has resolved. I think he is back to normal as far as that goes. 2. The patient is in electrolytes mess at this point. I think the multiple bags of potassium chloride with sodium chloride in it have driven up his sodium and his chloride but done very little for his potassium. We are going to continue withhold any diuretic within his blood pressure medication but I may add some spironolactone in low dose to aid with this problem. He is going to have p.o. potassium supplementation. I have given some D5 quarter normal saline to try and get the sodium down a little bit. 3. Pro time is down to 3.6 after vitamin K, I am going to give an additional small dose today. 4. The patient's BUN and creatinine are recovered. 5. Atrial fibrillation, stable. 6. Metabolic syndrome, stable. 7. Hypertension. Acceptable levels have been achieved. 8. Do not resuscitate level 1. 9. I am going ask the patient be able to walk with assistance in halls. I am hopeful that if we can get his electrolytes straightened out he will be discharged tomorrow or Saturday. cc: Hua Stewart MD
--- NOTE | 2019-04-24 19:01 | PROGRESS NOTE ---
DATE: 04/24/2019 Mr. Nicholas continues to have multiple loose stools. Dr. Woods is having to replete his potassium daily. His abdomen is soft without tenderness. He is good about sitting up in a chair, and he seems to be eating his meals. cc: MD Hua Brewster MD
[2019-04-25] MEDS: D5 1/4 NS 1,000 ML IV SCH (01:05)
[2019-04-25 07:52] VITALS: BP 141/82
[2019-04-25 08:33] LABS: PTT 34.8 Seconds (22.3-41.8)
[2019-04-25 08:34] LABS: INR 1.83; PROTIME 21.5 Seconds (11.0-16.0)
[2019-04-25 08:44] LABS: AGAP 14; BUN 25 mg/dL (8-22); CALCIUM 7.3 mg/dL (8.8-10.2); CHLORIDE 112 mmol/L (98-107); COSMO 299; CREATININE 0.6 mg/dL (0.7-1.2); ESTIMATED GFR > 60; GLUCOSE 113 mg/dL (70-104); POTASSIUM 2.7 mmol/L (3.5-5.1); SODIUM 148 mmol/L (136-145); TCO2 22 mmol/L (25-35)
[2019-04-25] MEDS: XANAX PO SCH (10:16)
[2019-04-25] MEDS: COZAAR PO SCH (10:16)
[2019-04-25] MEDS: CELEBREX PO SCH (10:16)
[2019-04-25] MEDS: KLOR-CON PO SCH (10:16)
[2019-04-25] MEDS: ALDACTONE PO SCH (10:17)
[2019-04-25] MEDS: AVODART PO SCH (10:17)
[2019-04-25] MEDS: FLOMAX PO SCH (10:18)
--- NOTE | 2019-04-27 07:39 | DISCHARGE SUMMARY ---
ADMISSION DATE: 04/20/2019 DISCHARGE DATE: 04/25/2019 DISCHARGE DIAGNOSES: 1. Colonic inertia. 2. 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 3. Coumadin toxicity. 4. Hypokalemia. 5. Chronic atrial fibrillation. 6. Metabolic syndrome. 7. Hypertension. CONSULTATIONS: Dr. Trey Colon. Dr. Porter Antunez. HOSPITAL COURSE: 1. This 83-year-old white male was admitted after a 4-day history of increasing abdominal distention and general lack of solid bowel movement. Initial evaluation showed markedly distended colon on x-ray and this was confirmed with CT scan, but did not show any obvious signs of physical obstruction. It was noted that when the patient was diagnosed with colon cancer in the last year that the mass in the sigmoid colon at the junction of the rectum was obstructing the lumen by 75 to 90 percent. We were worried that he had physical obstruction and I consulted surgery. Luckily with nasogastric suction and IV fluids, the patient's abdominal distention seemed to resolve greatly and the patient became hungry again. 2. It is noted the patient was hypokalemic on admission, likely the cause of which was multifactorial, notwithstanding his use of a blood pressure medication which had a diuretic in it. Despite giving him massive amounts of potassium and repleting any other abnormalities in his serum chemistries, he continued to be hypokalemic. We got his potassium up to 2.7. He was taking potassium chloride 3 times a day at the time of discharge and will continue this for several days following discharge. 3. The patient initially had a little bit of kidney injury, but again with hydration, this returned back to baseline. 4. The patient was in chronic atrial fibrillation prior to this hospitalization and there were no difficulties involved there. 5. The patient's pro-time was markedly elevated when he came. Despite holding his medication during the hospitalization, this continued to go up. Eventually, we decided to give him some vitamin K subcu on two occasions and it brought his INR down to around 1.8. He is discharged home on 1 mg of Coumadin daily. He has followup with Dr. Antunez 3 days post discharge on Saturday of the following week. He can follow up with me anytime after that. 6. The patient's blood pressure medication was changed from losartan HCT to plain losartan. We also added spironolactone 25 mg daily to his regimen to support potassium and afford him a bit of diuresis. cc: Hua Stewart MD
== END 2019-04-25 11:41 | disposition home or self-care (01) | DRG 389 ==
LOC: SUPCPDRO → ED 07:41 → 4N 12:17
PROVIDERS: ADMIT Internal Medicine; ATTEND Internal Medicine

== ENCOUNTER 2019-04-28 15:24 | Inpatient (IN) ==
[2019-04-28 16:53] LABS: HEMATOCRIT 46.8 % (42.0-52.0); HEMOGLOBIN 15.6 g/dL (14.0-18.0); MCH 30.2 PG (27-31); MCV 90.5 FL (81-99); RBC 5.17 XMIL (4.7-6.1); WBC 14.41 X1000 (4.8-10.8)
[2019-04-28 16:54] LABS: BASO% 0.1 % (0.0-0.8); EOS% 0.1 % (0.0-10.0); IMM GRAN% 0.3 % (0.0-0.5); LYMPH% 5.2 % (20.5-51.1); MCHC 33.3 g/dL (33-37); MONO% 2.2 % (1.7-9.3); MPV 10.7 FL (7.4-10.4); NEUT% 92.1 % (42.2-75.2); PLT 218 X1000 (130-400)
[2019-04-28 16:55] LABS: BASO# 0.01 X1000 (0.0-0.2); EOS# 0.01 X1000 (0.0-0.7); IMM GRAN# 0.04 X1000 (0.0-0.04); LYMPH# 0.75 X1000 (1.2-3.4); MONO# 0.32 X1000 (0.11-0.59); NEUT# 13.28 X1000 (1.4-6.5)
[2019-04-28 17:20] LABS: AGAP 17; ALB/GLOB RATIO 1.7; ALBUMIN 3.8 g/dL (3.5-5.0); ALKALINE PHOSPHATASE 78 U/L (32-122); AMYLASE 57 U/L (20-200); BUN 33 mg/dL (8-22); CHLORIDE 104 mmol/L (98-107); COSMO 289; ESTIMATED GFR > 60; GLUCOSE 116 mg/dL (70-104); GOT 29 U/L (10-34); GPT 34 U/L (10-44); LIPASE 46 U/L (13-60); POTASSIUM 4.2 mmol/L (3.5-5.1); SODIUM 141 mmol/L (136-145); TCO2 20 mmol/L (25-35); TOTAL BILIRUBIN 0.88 mg/dL (0.20-1.00)
[2019-04-28 17:22] LABS: URINE SOURCE CATH
--- NOTE | 2019-04-28 17:48 | Diag Imaging Result Doc PS360 ---
EXAM: CHEST-1 VIEW INDICATION: Abdominal Pain TECHNIQUE: One view COMPARISON: 04/21/2019 FINDINGS: A right chest port is in stable position. Inspiration is suboptimal. There is increased opacity at the left costophrenic angle suggesting atelectasis and/or infiltrate. No pneumothorax is appreciated. The cardiac silhouette is prominent but stable. Central vasculature is unremarkable. There is a significant amount of free abdominal gas underlying the diaphragm. If there has been no recent abdominal surgery, this is suspicious for perforated viscus. IMPRESSION: 1.Significant amount of free abdominal gas underlying the diaphragm. Correlation with CT of the abdomen and pelvis, preferably with IV contrast is recommended to evaluate for perforated viscus. 2.Vague increased opacity at the left costophrenic angle suggesting atelectasis and/or infiltrate. Electronically signed by Troy Powell 04/28/2019 5:46 PM
[2019-04-28 17:49] LABS: BILIRUBIN URINE SMALL (NEGATIVE); BLOOD URINE NEGATIVE (NEGATIVE); COLOR YELLOW; GLUCOSE URINE NEGATIVE (NEGATIVE); KETONE URINE NEGATIVE (NEGATIVE); LEUKOCYTES URINE NEGATIVE (NEGATIVE); NITRITE URINE NEGATIVE (NEGATIVE); PROTEIN URINE 100 mg/dL (NEGATIVE); SP GRAVITY URINE 1.029; TURBIDITY URINE HAZY (CLEAR); UR EPITHELIAL CELLS >10 /HPF (<10); URINE BACTERIA NEGATIVE /HPF; URINE RBC <10 /HPF (<10); URINE WBC 20-40 /HPF (<10); UROBILINOGEN URINE 3 mg/dL (NORMAL)
[2019-04-28 18:01] LABS: URINE CASTS GRANULAR PRESENT; URINE CRYSTALS NONE SEEN; URINE YEAST NONE SEEN
--- NOTE | 2019-04-28 18:21 | Diag Imaging Result Doc PS360 ---
EXAM: CT ABD/PELVIS W/IV CONT ONLY INDICATION: Abdominal Pain and swelling TECHNIQUE: This exam was performed using automated exposure control, adjustment of mA or kV according to patient size, and/or use of iterative reconstruction technique. COMPARISON: 04/20/2019 FINDINGS: There is mild bibasilar subsegmental atelectasis that appears slightly nodular at the right lung base. However, this is stable. There is significant pneumoperitoneum that has developed during the interval indicating perforated hollow viscus. The exact site of the perforation is unclear. However, I suspect that it is from the colon as the colon remains significantly distended similar to the previous study. There is focal circumferential thickening and luminal narrowing of the colon in the rectosigmoid region. It can be seen on image 167 of series 4. Neoplasm cannot be excluded. It is possible that this is the site of the perforation. However, there is no free gas directly adjacent to this short segment. There is milder thickening involving the distal sigmoid colon just proximal to this short segment. Adjacent to this thickened segment, there is a nodular soft tissue density in the mesentery on image 161 of series 4 measuring 2.3 x 1.3 cm axially. Adjacent lymphadenopathy is a consideration. In addition to the colonic distention, there is also significant small bowel distention containing air and fluid. The stomach is mildly distended. There are multiple renal cysts and there is a hyperdense nodule near the lower pole of the right kidney that is also seen on the previous study. There is no obvious enhancement. This probably represents a blood filled cyst. The remainder of the solid viscera of the abdomen and pelvis are essentially stable as compared to the recent prior study. There is nothing to suggest local bony metastatic disease. IMPRESSION: 1.Significant pneumoperitoneum indicating ruptured hollow viscus. Although the exact source is not clear, it is probably from the colon as the colon remains significantly distended similar to the previous study. 2.Focal circumferential thickening in the rectosigmoid region that is suspicious for neoplasm. It is possible that this is the site of perforation. However, no directly adjacent free air is identified. 3.Multiple distended loops of small bowel that is probably also related to the distal colonic obstruction. 4.Otherwise, the solid viscera of the abdomen and pelvis are essentially stable. Electronically signed by Troy Powell 04/28/2019 6:19 PM
[2019-04-28] MEDS ORDERED: ZOSYN 3.375 GM in NS 50 ML IV ONE (18:30)
[2019-04-28 18:42] LABS: INR 1.21; PROTIME 15.5 Seconds (11.0-16.0)
[2019-04-28] MEDS ORDERED: XYLOCAINE-MPF 2% ONE (18:42)
[2019-04-28] MEDS ORDERED: QUELICIN (DOSE) ONE (18:42)
[2019-04-28] MEDS ORDERED: SODIUM CHLORIDE 0.9% 10 ML ONE (18:44)
[2019-04-28] MEDS ORDERED: NORCURON ONE (18:44)
--- NOTE | 2019-04-28 18:48 | HISTORY AND PHYSICAL ---
CHIEF COMPLAINT: Perforated viscus. HISTORY: This is an 83-year-old gentleman who was a patient of Dr. Stewart, who was in the hospital recently under his care with abdominal distention. We felt it was due to an ileus. He was discharged home and today started complaining about severe abdominal pain. He presents to the emergency department once again and the chest x-ray shows free air, verified by CT scan as well. PAST HISTORY: Pertinent for hypertension, hypercholesterolemia, degenerative arthritis, remote history of prostatitis, chronic atrial fibrillation, metabolic syndrome, and metastatic rectal cancer for which he is being treated by Dr. Antunez. PREVIOUS SURGERIES: Include cataract surgery, laparoscopic cholecystectomy and ERCP with sphincterotomy. MEDICATIONS AT HOME: Include Cozaar 100 mg daily, Klor-Con 40 mEq 3 times a day, Coumadin 1 mg at bedtime, Aldactone 25 mg daily, Avodart 1 capsule daily, Celebrex 200 mg daily, Xanax 1 mg twice a day, Flomax 0.4 mg daily, zinc 100 mg twice a day, multivitamins daily, tramadol every 6 hours as needed, MiraLAX daily, vitamin B12 daily, fish oil 1200 mg twice daily. ALLERGIES: He has no known drug allergies. SOCIAL HISTORY: He is . He does have an attentive neighbor. No smoking or alcohol usage. FAMILY HISTORY: Unknown. REVIEW OF SYSTEMS: Negative in all of the subsystems, except for the ones noted above. PHYSICAL EXAMINATION: VITAL SIGNS: He is afebrile. Heart rate is 82, blood pressure 107/68, respiratory rate is 14. NECK: He has no cervical adenopathy. LUNGS: Bilateral breath sounds. HEART: Regular rate and rhythm. ABDOMEN: Grossly distended, tympanitic. Moderately tender to palpation. EXTREMITIES: Femoral pulses are present. He does have some peripheral edema. CENTRAL NERVOUS SYSTEM: He is somewhat difficult to understand when he speaks. It is hard to determine his orientation. He does communicate with his neighbor well. LABORATORY DATA: White count is 14,400, hemoglobin 15.6. BUN 33, creatinine 1.0. ProBNP 5597. ProTime is pending. ASSESSMENT: Perforated viscus with a history of metastatic rectal cancer. PLAN: A laparotomy and we will potentially have to do a colostomy. We will have to check his ProTime and correct his coagulopathy. cc: Kevan Hebert MD
--- NOTE | 2019-04-28 18:50 | PROVIDER DOCUMENTATION ---
This chart was entered by Charli Mea Scribe, acting as scribe for Chinedu Echavarria MD. HPI-General Adult - General Chief Complaint: Abdominal Pain Stated Complaint: ABDOMINAL PAIN Time Seen by Provider: 04/28/19 15:49 Source: patient Allergies/Adverse Reactions: Patient Allergies Allergy/AdvReac Type Severity Reaction Status Date / Time No Known Allergies Allergy Verified 04/28/19 16:40 Home Medications: Home Medication List Medication Instructions Recorded Confirmed Last Taken Type Alprazolam [Xanax] 1 mg PO BID 02/05/13 04/28/19 04/28/19 History Celecoxib [Celebrex] 1 cap PO DAILY 02/05/13 04/28/19 04/28/19 History Dutasteride [Avodart] 1 cap PO DAILY 02/05/13 04/28/19 04/28/19 History Tamsulosin [Flomax] 0.4 mg PO DAILY #30 capsule 02/06/13 04/28/19 04/28/19 Rx Cyanocobalamin (Vitamin B-12) 1,000 mcg PO DAILY 04/20/19 04/28/19 04/28/19 History [B-12] Fish Oil/Dha/Epa [Fish Oil 1,200 1 ea PO BID 04/20/19 04/28/19 04/28/19 History mg Fish Oil] Multivitamin [Multi-Vitamin Daily] 1 tab PO DAILY 04/20/19 04/28/19 04/28/19 History Polyethylene Glycol 3350 [Miralax] 17 gm PO DAILY 04/20/19 04/28/19 04/28/19 History Tramadol HCl 50 mg PO Q4-6H PRN PRN 04/20/19 04/28/19 1 Day Ago History ~04/27/19 Vit B Comp with C/Calcium Carb 1 ea PO DAILY 04/20/19 04/28/19 04/28/19 History [Gnp B-Complex Plus Vit C Tab] Zinc Gluconate [Zinc] 100 mg PO BID 04/20/19 04/28/19 04/28/19 History Losartan [Cozaar] 100 mg PO DAILY #30 tab 04/25/19 04/28/19 04/28/19 Rx Potassium Chloride E.r. [Klor-Con] 40 meq PO TID #20 tab 04/25/19 04/28/19 04/28/19 Rx Spironolactone [Aldactone] 12.5 mg PO DAILY #30 tab 04/25/19 04/28/19 04/28/19 Rx Warfarin [Coumadin] 1 mg PO QHS #30 tab 04/25/19 04/28/19 1 Day Ago Rx ~04/27/19 - History of Present Illness -Gen Adult Nature of Presenting Problems: 83 y/o M presents to the ED c/o abdominal pain with some nausea and vomiting. Onset today. Patient is currently on chemo for metastatic rectal cancer to the lung. Patient has also had liquid stool today. Family reports that patient's abdomen is distended. Patient and family denies known fever, rectal bleeding and all other symptoms. Per family the onset of the pain was at lunch today. The patient has had a decreased appetite. The patient has not has any shortness of breath. Location of Pain/Injury: reports: abdomen Severity: reports: mild Onset/Duration: reports: this afternoon Timing: reports: still present Context/Activities at Onset: reports: other (recent admission to hospital, hx of metastatic rectal cancer) Associated Symptoms: reports: loss of appetite, nausea, vomiting Similar Symptoms Previously?: No Recently seen or treated by another doctor?: Yes (Recent admission and discharge) Review of Systems - Adult - REVIEW OF SYSTEMS - ADULT Constitutional: denies: fever Eyes: reports: no symptoms reported. denies: eye pain Ears, Nose, Mouth & Throat: reports: no symptoms reported. denies: throat pain Cardiovascular: reports: no symptoms reported. denies: chest pain Respiratory: reports: no symptoms reported. denies: shortness of breath Gastrointestinal: reports: abdominal pain, nausea, vomiting Genitourinary: reports: no symptoms reported. denies: flank pain Musculoskeletal: reports: no symptoms reported, back pain Integumentary: reports: no symptoms reported Neurological: reports: no symptoms reported. denies: headache/migraines Psychiatric: reports: no symptoms reported. denies: alcohol/drug dependence Hematologic/Lymphatic: reports: no symptoms reported Allergic/Immunologic: reports: no symptoms reported Past History - Adult - PAST MEDICAL HISTORY-ADULT Review of Records: reports: Old Records Reviewed Major Childhood Illnesses: reports: denies history Cardiovascular: reports: A-Fib, HTN, hyperlipidemia Respiratory: reports: cancer Gastrointestinal: reports: cancer (metastatic rectal), GERD Genitourinary: reports: kidney stones Musculoskeletal: reports: denies history Neurological: reports: denies history Psychiatric: reports: denies history Endocrine/Immune: reports: denies history Other Conditions: reports: denies history - PRIOR SURGERIES/PROCEDURES Surgical/Procedure History: reports: cholecystectomy - IMMUNIZATION STATUS Childhood Immunizations: See Nurse Assessment Flu Vaccine: See Nurse Assessment - FAMILY HISTORY Family History: reviewed, not pertinent - SOCIAL HISTORY Smoking: denies Physical Exam-General - PHYSICAL EXAM-ADULT Initial Vital Signs Reviewed: Yes - CONSTITUTIONAL General Appearance: alert, no apparent distress - EYES Eyes: negative: conjuctival exudate, photophobia, sclera injected, scleral icterus, subconjunctival hemorrhage - HEAD, EARS, NOSE, MOUTH & THROAT HENMT: normocephalic/atraumatic. negative: moist mucous membranes (dry) - NECK Neck: supple, normal inspection - RESPIRATORY Respiratory: normal breath sounds, no respiratory distress - CARDIOVASCULAR Cardiovascular: regular rate, rhythm. negative: no edema (trace LE edema) - GASTROINTESTINAL (ABDOMEN) Abdominal Exam: distended (severe), rigid, tenderness (LLQ and RLQ) - MUSCULOSKELETAL Extremity: non-tender, swelling (trace LE), other (moves all extremities) - SKIN Integumentary: negative: warm/dry (cool extremities) - NEUROLOGIC Neurologic: grossly normal - PSYCHIATRIC Psych/Mental Status: normal mood/affect, normal thought content, normal thought process, oriented x 3 Progress - PLAN OF CARE/RESULTS Progress/Plan/Lab Results: Vital Signs - 8 hr 04/28/19 15:36 Pulse Rate 82 Respiratory Rate 15 Blood Pressure 107/68 O2 Sat by Pulse Oximetry 96 Result Diagrams: 04/28/19 16:30 04/28/19 16:30 - REASSESSMENT Reassessment #1 Status: other (Free air noted under the diaphragm and possible perforation noted on the CT. Discussed the case with Dr. Hebetr who will be admitting to his service and is planning surgery this evening.) Departure - Departure Date of Disposition Decision: 04/28/19 Time of Disposition Decision: 17:45 DIAGNOSIS: Abdominal distension (gaseous), Perforated abdominal viscus Abdominal pain Qualifiers: Abdominal location: upper abdomen, unspecified Qualified Code(s): R10.10 - Upper abdominal pain, unspecified Disposition: ADMITTED INPATIENT 09 Certified Medical Emergency: Emergent Condition: Good Referrals and Follow-Ups: Hua Stewart MD [Primary Care Provider] - - Critical Care Note This patient required my direct & personal management of CC.: No Attestation - Physician/ NINOSKA Attestation Patient care was provided by Advanced Practice Provider:: No The physician spent face to face time with patient:: Yes Advanced Practice Provider documentation review:: Supervising physician onsite and consulted in the evaluation and care of this patient. The physician did have a face to face encounter with the patient. This chart was documented by the indicated scribe, (Charli Mae Scribike) and accurately reflects the services I performed and decisions made by me, Chinedu Echavarria MD, as attested by the provider's signature.
[2019-04-28] MEDS ORDERED: AMIDATE ONE (19:08)
[2019-04-28] MEDS ORDERED: LOPRESSOR ONE (19:16)
[2019-04-28] MEDS ORDERED: NEO-SYNEPHRINE ONE ×2 (19:31→19:34)
[2019-04-28] MEDS ORDERED: OFIRMEV 1000 MG/ISOTONIC SOLN 1,000 MG/100 ML BOTTLE ONE (19:38)
[2019-04-28] MEDS ORDERED: ALBUMIN 25% ONE (19:40)
[2019-04-28] MEDS ORDERED: PITRESSIN ONE (19:48)
[2019-04-28] MEDS ORDERED: STERILE WATER INJ. ONE (19:51)
[2019-04-28] MEDS ORDERED: ROBINUL ONE (20:13)
[2019-04-28] MEDS ORDERED: NEOSTIGMINE ONE (20:14)
[2019-04-28 20:19] LABS: URINE SOURCE CATH
[2019-04-28 20:23] LABS: BILIRUBIN URINE NEGATIVE (NEGATIVE); BLOOD URINE SMALL (NEGATIVE); COLOR YELLOW; GLUCOSE URINE NEGATIVE (NEGATIVE); KETONE URINE NEGATIVE (NEGATIVE); LEUKOCYTES URINE NEGATIVE (NEGATIVE); NITRITE URINE NEGATIVE (NEGATIVE); PROTEIN URINE 70 mg/dL (NEGATIVE); TURBIDITY URINE CLEAR (CLEAR); UROBILINOGEN URINE 2 mg/dL (NORMAL)
[2019-04-28 20:28] LABS: UR EPITHELIAL CELLS >10 /HPF (<10); URINE BACTERIA NEGATIVE /HPF; URINE RBC <10 /HPF (<10)
[2019-04-28 20:42] LABS: URINE CASTS GRANULAR PRESENT; URINE CRYSTALS NONE SEEN; URINE YEAST NONE SEEN
[2019-04-28] MEDS: NS 1,000 ML IV SCH (22:45)
[2019-04-28] MEDS: DILAUDID IV PRN (22:53)
[2019-04-29] MEDS: ZOSYN 3.375 GM in NS 50 ML IV SCH ×4 (00:57→18:42)
[2019-04-29] MEDS: DILAUDID IV PRN ×3 (02:11→19:25)
--- NOTE | 2019-04-29 05:45 | OPERATIVE NOTE ---
PROCEDURE DATE: 04/28/2019 PROCEDURE PERFORMED: Exploratory laparotomy and exteriorization of a perforated cecum. SURGEON: Kevan Hebert MD. SUBGRADE ROLLER OPERATOR: Corrie. PREOPERATIVE DIAGNOSIS: Perforated viscus. POSTOPERATIVE DIAGNOSIS: Perforated anterior cecum. DESCRIPTION OF PROCEDURE: After satisfactory general endotracheal anesthesia was achieved the abdomen was prepped and draped in a sterile fashion. A midline incision was made, we carried our incision through the subcutaneous tissue through the midline fascia, entering the abdominal cavity. There was cloudy almost purulent peritoneal fluid present. We cultured the fluid. The entire colon and small bowel also was dilated. The anterior cecum was massively dilated and a hole was noted on the anterior cecum. The muscle was split, the serosa was split, and in the middle of the split was the perforation. We placed a 3-0 silk [id number] stitch to close that hole. We then copiously irrigated all 4 quadrants, removing all the cloudy effluent, and we did that until the effluent was clear. The cancer of the proximal rectum was palpated, it was the source of the problem and it was obstructive in nature, the colon was dilated from this point all the way back. The small bowel was dilated as well, and the stomach was dilated. We decided that we could mobilize the cecum enough to exteriorized the perforation. So we did incise the white line of Toldt up to near the top of the hepatic flexure and this mobilized the right colon enough to allow exteriorization of the anterior cecum. We grasped the fascia in the midline, we then excised an ellipse of skin, we then dissected down to the anterior rectus sheath and opened it, both longitudinally and transversely spread the muscles of the rectus, and then opened the posterior rectus sheath as well as open to the extent that it would admit 3 fingerbreadths easily, and we were able to bring the anterior cecum out through the stoma without difficulty. We placed stitches from the cecum to the fascia circumferentially using 3-0 Polysorb. We reflected on whether the rectal cancer should be resected, but in fact due to its low nature in the pelvis and its attachment to the sidewall we felt that the risks outweighed the benefits at this point since he did have metastatic cancer. We felt that diversion of his fecal stream would decompress his colon and his small bowel as well. So we then proceeded to close the peritoneum with a #1 Chromic. Prior to closing it we did palpate the NG tube in the stomach. After finishing the perineum we closed the fascia with running #2 Prolene beginning cephalad and going caudad. We then irrigated the subcutaneous tissue copiously and closed the skin with marcelle. We covered the midline staple with a towel, and we then placed a flange around the stoma. After the flange was positioned in place we then opened the stoma and a significant amount of intracolonic fluid escaped. After we got it where was not pouring out we then placed some 3-0 Polysorb simple stitches between the edge of the cecal opening and the surrounding skin edge. This provided an adequate decompressive cecostomy. A bag was applied over the stoma. He tolerated the procedure satisfactorily and was sent to the recovery room in satisfactory condition. cc: MD Hua Miguel MD MTDD
[2019-04-29 06:16] LABS: BASO# 0.01 X1000 (0.0-0.2); HEMOGLOBIN 12.5 g/dL (14.0-18.0); IMM GRAN# 0.05 X1000 (0.0-0.04); IMM GRAN% 0.2 % (0.0-0.5); LYMPH# 0.78 X1000 (1.2-3.4); LYMPH% 3.7 % (20.5-51.1); MCH 29.9 PG (27-31); MCHC 32.1 g/dL (33-37); MCV 93.3 FL (81-99); MONO# 0.62 X1000 (0.11-0.59); MPV 11.1 FL (7.4-10.4); NEUT# 19.45 X1000 (1.4-6.5); NEUT% 93.1 % (42.2-75.2); PLT 140 X1000 (130-400); RBC 4.18 XMIL (4.7-6.1); RDW 19.6 % (11.5-14.5); WBC 20.91 X1000 (4.8-10.8)
[2019-04-29] MEDS: NS 1,000 ML IV SCH ×2 (07:37→13:18)
[2019-04-29 07:52] LABS: SODIUM 142 mmol/L (136-145)
[2019-04-29 07:53] LABS: AGAP 13; BUN 35 mg/dL (8-22); CHLORIDE 108 mmol/L (98-107); COSMO 291; GLUCOSE 97 mg/dL (70-104); POTASSIUM 3.9 mmol/L (3.5-5.1); TCO2 21 mmol/L (25-35)
[2019-04-29 07:54] LABS: CALCIUM 7.1 mg/dL (8.8-10.2)
[2019-04-29] MEDS: AVODART PO SCH (09:25)
[2019-04-29] MEDS: FLOMAX PO SCH (09:25)
[2019-04-29] MEDS: ALDACTONE PO SCH (09:25)
--- NOTE | 2019-04-29 12:51 | GENERAL SURGERY PROGRESS NOTE ---
DATE: 04/29/2019 SUBJECTIVE: He is postop day 1 after exploratory laparotomy and a cecostomy for a perforated cecum. OBJECTIVE: He is awake and alert and oriented. He is afebrile. Heart rate is 93. Blood pressure 109/65. Lungs sound clear. He is putting out through his cecostomy at 550 mL out. He has intermittent compression hose on. [place]: [place] [address]. Hemoglobin 12.5. Chemistry is okay. BUN 35. Creatinine 1.0. ASSESSMENT: Satisfactory progress. We will continue with IV fluids and antibiotic therapy. Dr. Stewart will consult for medical care. cc: Kevan Hebert MD
--- NOTE | 2019-04-29 14:24 | CONSULTATION ---
DATE OF CONSULTATION: 04/29/2019 CONSULTING PHYSICIAN: Dr. Kevan Hebert. ASSESSMENT AND PLAN: 1. The patient is postoperative, and ostomy status will be monitored by Dr. Hebert and his surgical partners. They will be managing bowel function, oral intake, nutrition, etc. as time goes on. 2. We are holding the patient's antihypertensive medications because of low blood pressure. Hopefully, when his fluid status is equilibrated, we can get him back on his usual set of medications. 3. Last hospitalization, the patient had difficulty with managing his ProTime. He was on a minimal dose of warfarin, but we will need to check this again tomorrow, and manage that appropriately due to the patient's chronic atrial fibrillation. 4. The patient has known metabolic syndrome. We will follow this at a distance since he is nothing by mouth. I do not think it is going to make that much difference right now anyway. 5. Last hospitalization, the patient had grave difficulty with hypokalemia as well. We will need to monitor this throughout his postoperative period. 6. The patient has stage IV colon cancer. The operative description of that cancer being adhered to the abdominal wall does not portend great longevity for this patient. He is a DO NOT RESUSCITATE level 1, and we will notify Dr. Antunez's office that he is hospitalized, although I do not know that a Hematology/Oncology consultation at this point is going to be of much value to his acute care. HISTORY OF PRESENT ILLNESS: This 83-year-old white male was discharged over the last weekend after spending multiple days in the hospital for basically an obstructive process in the colon. Because of his age and his already likely terminal diagnosis, we tried to avoid surgery. His colon decompressed slowly with NG tube suction, and he was having relatively normal bowel function at the time of discharge over the weekend. He became acutely ill with abdominal pain, was brought to the emergency room, and found to have a perforated viscus. The patient was taken to the OR, and the patient had a rupture in his cecum. Dr. Hebert repaired the rupture, and then performed a cecostomy as a decompressive effort because the distal rectosigmoid tumor was, if not obstructing at the present time, eminently going to obstruct, and it was adhered to the abdominal wall. There was no resection performed, which is entirely appropriate. We are consulted for medical management. PAST MEDICAL HISTORY: 1. Hypertension. 2. Hypercholesterolemia. 3. Degenerative arthritis of the hips. 4. Atrial fibrillation, chronic, with rate control and chronic anticoagulation. 5. Metabolic syndrome. 6. Metastatic rectal cancer with single lung nodule, followed and treated by Dr. Antunez. PAST SURGICAL HISTORY: 1. Right cataract. 2. Laparoscopic cholecystectomy. 3. ERCP with sphincterotomy. PRESENT MEDICATIONS: Avodart 0.5 mg p.o. daily, Celebrex 200 mg p.o. daily, Coumadin 1 mg p.o. daily, Flomax 0.4 mg p.o. daily, losartan 100 mg p.o. daily, spironolactone 25 mg p.o. daily, Xanax 1 mg p.o. b.i.d., pravastatin 40 mg p.o. at bedtime. ALLERGIES: No known drug allergies. REVIEW OF SYSTEMS: The patient had acute-onset abdominal pain when he was transferred to the emergency room via ambulance. For details of the previous hospitalization and the patient's overall functional status, we can refer to the documents from that hospitalization. The patient was walking, eating, and having normal bowel movements. He had not had any cough, wheezing, or shortness of breath. He had, up until the acute onset of pain, not really had any vomiting or nausea. He had not had any fever. PHYSICAL EXAMINATION: I have interviewed and examined the patient postoperatively in the ICU. General: He is a well-developed, elderly, white male in no acute distress. He appears to be alert, oriented, conversive, and appropriate. The patient's speech sounds very garbled at times, but this is his baseline. It is just the way he talks. It is not a neurological deficit. Sometimes, he is more intelligible than others. HEENT: Sclerae anicteric. Lungs: Clear to auscultation. Cardiovascular: Irregularly irregular at a rate of approximately 90 beats per minute at the time of my examination. Abdomen: Soft. I do not hear any bowel sounds postoperatively, which is not unexpected, but even compared to the condition he was in at discharge, the cecostomy has provided marked decompression of his abdominal distention by comparison to previous exam. Extremities: No peripheral edema. Neurologic: As stated, alert, oriented, conversive, and appropriate. He moves all extremities spontaneously and without difficulty. cc: MD Kevan Santiago MD
[2019-04-29] MEDS ORDERED: GEODON ONE (20:07)
[2019-04-29] MEDS ORDERED: STERILE WATER INJ. ONE (20:08)
[2019-04-29] MEDS: GEODON IM PRN (20:15)
[2019-04-30] MEDS: ZOSYN 3.375 GM in NS 50 ML IV SCH ×4 (00:19→17:41)
[2019-04-30] MEDS: NS 1,000 ML IV SCH ×2 (00:19→05:52)
[2019-04-30] MEDS: STERILE WATER INJ. INJ PRN ×2 (02:51→14:54)
[2019-04-30] MEDS: GEODON IM PRN ×2 (02:51→14:55)
[2019-04-30 06:21] LABS: EOS# 0.01 X1000 (0.0-0.7); EOS% 0.1 % (0.0-10.0); HEMATOCRIT 36.6 % (42.0-52.0); HEMOGLOBIN 11.9 g/dL (14.0-18.0); IMM GRAN# 0.04 X1000 (0.0-0.04); IMM GRAN% 0.3 % (0.0-0.5); LYMPH# 0.47 X1000 (1.2-3.4); LYMPH% 3.2 % (20.5-51.1); MCH 30.2 PG (27-31); MCHC 32.5 g/dL (33-37); MCV 92.9 FL (81-99); MONO# 0.69 X1000 (0.11-0.59); MONO% 4.7 % (1.7-9.3); MPV 11.2 FL (7.4-10.4); NEUT% 91.7 % (42.2-75.2); PLT 101 X1000 (130-400); RBC 3.94 XMIL (4.7-6.1); RDW 19.8 % (11.5-14.5); WBC 14.81 X1000 (4.8-10.8)
[2019-04-30 06:32] LABS: INR 1.6; PROTIME 19.3 Seconds (11.0-16.0)
[2019-04-30 06:33] LABS: PTT 39.2 Seconds (22.3-41.8)
[2019-04-30 07:23] LABS: AGAP 14; ALBUMIN 2.6 g/dL (3.5-5.0); ALKALINE PHOSPHATASE 67 U/L (32-122); BUN 28 mg/dL (8-22); CHLORIDE 113 mmol/L (98-107); COSMO 297; CREATININE 0.8 mg/dL (0.7-1.2); ESTIMATED GFR > 60; GLUCOSE 90 mg/dL (70-104); GOT 22 U/L (10-34); GPT 20 U/L (10-44); SODIUM 147 mmol/L (136-145); TCO2 20 mmol/L (25-35); TOTAL BILIRUBIN 0.53 mg/dL (0.20-1.00); TOTAL PROTEIN 5.1 g/dL (6.3-8.3)
[2019-04-30 07:40] LABS: CALCIUM 6.7 mg/dL (8.8-10.2)
[2019-04-30 07:42] LABS: POTASSIUM 2.3 mmol/L (3.5-5.1)
[2019-04-30] MEDS ORDERED: 1/2 NS 2,000 ML IV SCH (07:45)
[2019-04-30] MEDS ORDERED: POTASSIUM CHLORIDE 60 MEQ in NS 500 ML IV ONE (07:45)
[2019-04-30] MEDS: DILAUDID IV PRN ×2 (08:19→21:18)
[2019-04-30] MEDS: ALDACTONE PO SCH (08:52)
[2019-04-30] MEDS: AVODART PO SCH (08:52)
[2019-04-30] MEDS: FLOMAX PO SCH (08:52)
[2019-04-30] MEDS: ATIVAN IV SCH ×2 (08:56→20:19)
--- NOTE | 2019-04-30 09:44 | PROGRESS NOTE ---
DATE: 04/30/2019 SUBJECTIVE: The patient had a rough night last night after being fairly well oriented and cooperated all day. During the night, he became aggressive, confused, violent, even striking one nurse. He required physical and chemical restraint and eventually settled down. He pulled off his ostomy bag and also pulled out his Puga catheter causing some irritation and bleeding within the urine. This morning, he is awake, alert and seems reasonable. OBJECTIVE: Vital Signs: 98.2, 96, 15, 137/87, 100% saturated on 2 L nasal cannula. General: The patient is awake and alert. His speech is slurred, but this is baseline for him. It is not a neurological deficit, but really his way of enunciating and has not changed in many decades. Lungs: The patient's lungs are clear. Cardiovascular: Irregularly irregular. Abdomen: Tender and slightly distended. Bowel sounds are present. Extremities: Show no peripheral edema. The patient is restrained. LABORATORY DATA: White cell count is down to 14.8, hematocrit 36.6. Potassium is 2.3, sodium 147, chloride 113, BUN 28 and creatinine 0.8, calcium is slightly low at 6.7. His albumin is noted to be 2.6. ASSESSMENT AND PLAN: 1. From a postoperative standpoint, the patient's bowels seem to be awake. He has ostomy output and his abdomen is less distended than it was during last hospitalization. We will continue to let Dr. Hebert manage his postoperative care in that regard. 2. Antihypertensive medications have been held. Certain ones were restarted by Dr. Hebert. I believe they were held yesterday and hopefully if we can get rid of the NG tube, we can start some of those back. His blood pressure is stable at present. 3. The patient had difficulty managing electrolytes and fluid balance last hospitalization. He became hypernatremic and hyperchloremic as well as hypokalemic. I have written for IV potassium for now. He actually does better with p.o. potassium. His spironolactone has been restarted and I have changed his IV fluids over to half-normal saline to limit sodium and chloride intake. We noted his calcium was low, but he also has a low albumin and that corrects to much more appropriate levels, although still slightly low. 4. We are aware of metabolic syndrome. We may monitor this once he starts eating. 5. The patient's pro-time was 1.6. We will continue to monitor this in the immediate postoperative. I think it is worthwhile to hold his Coumadin. We can start that back hopefully as we remove some tethers and his orientation is better. 6. The patient has stage IV colon cancer. He is Do Not Resuscitate level 1. cc: MD Kevan Santiago MD
--- NOTE | 2019-04-30 14:50 | GENERAL SURGERY PROGRESS NOTE ---
DATE: 04/30/2019 SUBJECTIVE: He is now postop day 2 after laparotomy and diverting cecostomy. He is afebrile. His heart rate is 91, blood pressure 148/90. He was confused last night and had to be restrained. His input is 3250; output is 2625. He has had very little out of his NG tube. He has put a lot of his cecostomy. LABORATORY DATA: White count down to 14,800, hemoglobin 11.9. Pro time 19.3, INR 1.6. Sodium was 147. Potassium 2.3, chloride 113, BUN 28, creatinine 0.8. PLAN: Remove his NG tube. I will start him on clear liquids. I agree with the changes in his IV fluids as done by Dr. Stewart. Perhaps he will be well enough to transfer out tomorrow but we will see. We will recheck his labs tomorrow as well. cc: Kevan Hebert MD
[2019-05-01] MEDS: ZOSYN 3.375 GM in NS 50 ML IV SCH ×4 (00:08→17:51)
[2019-05-01] MEDS: DILAUDID IV PRN ×3 (00:09→13:02)
[2019-05-01] MEDS: GEODON IM PRN ×2 (01:55→17:26)
[2019-05-01] MEDS: STERILE WATER INJ. INJ PRN (01:56)
[2019-05-01 06:07] LABS: INR 1.39; PROTIME 17.3 Seconds (11.0-16.0)
[2019-05-01 06:26] LABS: BASO# 0.01 X1000 (0.0-0.2); BASO% 0.1 % (0.0-0.8); EOS# 0.02 X1000 (0.0-0.7); EOS% 0.2 % (0.0-10.0); HEMATOCRIT 36.4 % (42.0-52.0); IMM GRAN# 0.03 X1000 (0.0-0.04); IMM GRAN% 0.2 % (0.0-0.5); LYMPH# 0.54 X1000 (1.2-3.4); LYMPH% 4.1 % (20.5-51.1); MCH 30.5 PG (27-31); MCV 92.4 FL (81-99); MONO# 0.65 X1000 (0.11-0.59); MPV 11.4 FL (7.4-10.4); NEUT# 11.77 X1000 (1.4-6.5); NEUT% 90.4 % (42.2-75.2); PLT 101 X1000 (130-400); RBC 3.94 XMIL (4.7-6.1); RDW 19.5 % (11.5-14.5); WBC 13.02 X1000 (4.8-10.8)
[2019-05-01 06:57] LABS: AGAP 13; ALB/GLOB RATIO 0.9; ALBUMIN 2.7 g/dL (3.5-5.0); ALKALINE PHOSPHATASE 82 U/L (32-122); BUN 19 mg/dL (8-22); CHLORIDE 111 mmol/L (98-107); COSMO 295; CREATININE 0.9 mg/dL (0.7-1.2); ESTIMATED GFR > 60; GLUCOSE 99 mg/dL (70-104); GOT 24 U/L (10-34); GPT 18 U/L (10-44); TCO2 23 mmol/L (25-35); TOTAL BILIRUBIN 0.56 mg/dL (0.20-1.00); TOTAL PROTEIN 5.6 g/dL (6.3-8.3)
[2019-05-01 06:58] LABS: CALCIUM 6.7 mg/dL (8.8-10.2); POTASSIUM 2.2 mmol/L (3.5-5.1); SODIUM 147 mmol/L (136-145)
[2019-05-01] MEDS ORDERED: CALCIUM CHLORIDE 1 GM in NS 100 ML IV ONE (07:19)
[2019-05-01] MEDS: POTASSIUM CHLORIDE 20% LIQUID PO SCH ×2 (08:22→21:32)
[2019-05-01] MEDS: AVODART PO SCH (08:23)
[2019-05-01] MEDS: FLOMAX PO SCH (08:23)
[2019-05-01] MEDS: ALDACTONE PO SCH (08:23)
[2019-05-01] MEDS: ATIVAN IV SCH ×2 (08:23→22:05)
[2019-05-01] MEDS ORDERED: MAGNESIUM SULFATE 1 GM/D5W 1 GM/100 ML IVPB IV ONE (09:09)
[2019-05-01] MEDS ORDERED: 1/2 NS 2,000 ML IV SCH (13:00)
--- NOTE | 2019-05-01 15:25 | PROGRESS NOTE ---
DATE: 05/01/2019 SUBJECTIVE: The patient had a better night last night, rested a little more easily. He did not get belligerent in any way, so he is much calmer. He is tolerating clear liquids and medications pretty well. He has ostomy output. OBJECTIVE: Vital Signs: Temperature 98.2 with a T-max 100.9 degrees, pulse is 81, blood pressure 164/85. General: The patient is alert, oriented, conversive. Speech is difficult to understand, which is his baseline. Lungs: Clear. Cardiovascular: Irregularly irregular, approximately 80 to 90 beats per minute. Abdomen: Shows bowel sounds are present. He is tender diffusely. Extremities: Show no peripheral edema. LABORATORY DATA: White cell count 13, hemoglobin is 12.0. Potassium 2.2, calcium 6.7, BUN 19, creatinine 0.9, albumin is 2.7. ASSESSMENT AND PLAN: 1. The patient is status post cecostomy and repair of cecal tear. He seems to be progressing well with this. 2. The patient's blood pressure is ranging up. I am going to start him back on his regular dose of Xanax and see if this helps. I am going to continue to hold losartan, but this may need to be started back shortly. 3. Just as was the case in his last hospitalization, his electrolyte balance has been difficult to control. He was chronically hypokalemic despite getting massive amounts of potassium. This tended to get better after removal of NG tube and we hope this will be the case as well. He is getting twice daily supplementation of potassium as well as a little bit through the IV fluids. We will give him a single dose of IV calcium to replete that but the low levels that we have seen are likely related to albumin levels as well. 4. Metabolic syndrome. Aware. 5. The patient is chronically anticoagulated. He is off Coumadin right now. His INR is 1.3. I am going to starting him back on 1 mg of Coumadin daily and we will continue to monitor this closely. 6. Stage IV colon cancer. He is Do Not Resuscitate level 1. 7. The patient is appropriate for surgical floor private room care at this point. We are going to loosen his tethers a little bit by removing his Puga catheter which has been an irritant for him, and try to get him up in the chair over the weekend. cc: MD Kevan Santiago MD
[2019-05-01] MEDS: POTASSIUM CHLORIDE IV SCH (15:50)
[2019-05-01] MEDS: 1/4 NS IV SCH (15:50)
[2019-05-01] MEDS: D5 IV SCH (15:50)
--- NOTE | 2019-05-01 19:56 | GENERAL SURGERY PROGRESS NOTE ---
DATE: 05/01/2019 He is now a couple days after his laparotomy with a cecostomy. He is doing generally well. He is tolerating his liquids. He is having lots of cecostomy output. His midline wound looks okay. He is afebrile with satisfactory hemodynamics. White count is down to 13,000. Potassium remains low at 2.2. The plan is to advance him to full liquids. We will make his IV KVO. Will get him out of bed, will remove his Puga catheter and will transfer him up to regular room, Dr. Colon is to cover the weekend. cc: Kevan Hebert MD
[2019-05-01] MEDS: COUMADIN PO SCH (21:32)
[2019-05-01] MEDS: XANAX PO SCH (22:05)
[2019-05-02] MEDS: ZOSYN 3.375 GM in NS 50 ML IV SCH ×5 (00:31→22:25)
[2019-05-02] MEDS: DILAUDID IV PRN (04:20)
[2019-05-02] MEDS: POTASSIUM CHLORIDE IV SCH (05:17)
[2019-05-02] MEDS: D5 IV SCH (05:17)
[2019-05-02] MEDS: 1/4 NS IV SCH (05:17)
[2019-05-02 07:06] LABS: EOS# 0.02 X1000 (0.0-0.7); EOS% 0.2 % (0.0-10.0); HEMATOCRIT 36.2 % (42.0-52.0); HEMOGLOBIN 11.8 g/dL (14.0-18.0); LYMPH# 0.52 X1000 (1.2-3.4); MCH 29.7 PG (27-31); MCHC 32.6 g/dL (33-37); MCV 91.2 FL (81-99); MONO# 0.79 X1000 (0.11-0.59); MONO% 9.1 % (1.7-9.3); MPV 11.5 FL (7.4-10.4); NEUT# 7.35 X1000 (1.4-6.5); NEUT% 84.7 % (42.2-75.2); PLT 100 X1000 (130-400); RBC 3.97 XMIL (4.7-6.1); RDW 18.7 % (11.5-14.5); WBC 8.68 X1000 (4.8-10.8)
[2019-05-02 07:11] LABS: INR 1.33; PROTIME 16.7 Seconds (11.0-16.0)
[2019-05-02 07:30] LABS: POTASSIUM 2.2 mmol/L (3.5-5.1)
[2019-05-02 07:31] LABS: AGAP 11; ALBUMIN 2.6 g/dL (3.5-5.0); ALKALINE PHOSPHATASE 71 U/L (32-122); BUN 12 mg/dL (8-22); CHLORIDE 108 mmol/L (98-107); COSMO 294; CREATININE 0.7 mg/dL (0.7-1.2); ESTIMATED GFR > 60; GLUCOSE 124 mg/dL (70-104); GOT 22 U/L (10-34); GPT 15 U/L (10-44); SODIUM 147 mmol/L (136-145); TCO2 28 mmol/L (25-35); TOTAL BILIRUBIN 0.67 mg/dL (0.20-1.00); TOTAL PROTEIN 5.3 g/dL (6.3-8.3)
[2019-05-02] MEDS: ALDACTONE PO SCH (09:01)
[2019-05-02] MEDS: XANAX PO SCH ×2 (09:01→22:15)
[2019-05-02] MEDS: AVODART PO SCH (09:02)
[2019-05-02] MEDS: FLOMAX PO SCH (09:02)
[2019-05-02] MEDS: ATIVAN IV SCH ×2 (09:03→22:15)
[2019-05-02] MEDS: POTASSIUM CHLORIDE 20% LIQUID PO SCH ×2 (09:03→22:26)
[2019-05-02] MEDS ORDERED: MAGNESIUM SULFATE 2 GM/S.W.I. 2 GM/50 ML IVPB IV ONE (11:14)
[2019-05-02] MEDS ORDERED: CALCIUM CHLORIDE 1 GM in NS 100 ML IV ONE (11:15)
[2019-05-02] MEDS ORDERED: TYLENOL PO PRN (11:17)
--- NOTE | 2019-05-02 13:38 | PROGRESS NOTE ---
DATE: 05/02/2019 Mr. Gurdeep Nicholas is an 83-year-old white male patient Dr. Ike Stewart who has colon cancer that is near obstructing. He was recently hospitalized but returned to the hospital on Saturday with free air and perforation of his cecum. He was urgently taken to surgery per Dr. Hebert on 04/28/2019 and underwent exploratory laparotomy with exteriorization of perforated cecum. He is now on the floor. His right lower extremity ostomy is functioning. His abdomen is mostly soft. His midline incision is healing well without evidence of complication. He has been given a full liquid diet per Dr. Hebert and he remains on IV antibiotics. His white blood cell count is normal today. His hematocrit stable at 36%. His electrolytes are within normal limits except for a low potassium and even in his previous hospitalization we had problems keeping his potassium normal. His BUN and creatinine are 12 and 0.7. His heart rate is 79, blood pressure 132/82, O2 saturation 100%. He is afebrile. PLAN: We will advance his diet as tolerated and will continue to increase his activity. cc: MD Kevan Brewster MD
--- NOTE | 2019-05-02 15:51 | PROGRESS NOTE ---
DATE: 05/02/2019 SUBJECTIVE: The patient's chart was reviewed. In summary, patient was admitted on 04/28/[address] Kevan Hebert secondary to a perforated viscus. The patient was immediately taken for exploratory laparotomy. The patient was found to have a perforated anterior cecum. The perforated anterior cecum was exteriorized with a cecostomy. Postoperative course has been complicated by confusion, profound weakness, electrolyte abnormalities, and a postoperative ileus. On April 30, NG tube was removed. Since that time, patient has tolerated a very slow advancement in his diet. This morning, upon my arrival, patient was mildly confused, although without agitation. He also noted having significant fatigue. The p.o. intake this morning was marginal. Per report, patient received hydromorphone at approximately 4 a.m. There has been no evidence of fevers, chills, nausea, vomiting, shortness of breath, or chest discomfort over the course of the last 24 hours. He continues to require oxygen to maintain adequate saturations. OBJECTIVE: Vital Signs: T-max 98.4 degrees, heart rate 71 to 97, respirations 20 to 27, blood pressure 132 to 177/82 to 94. General: Elderly. No acute distress. Cardiovascular: Irregularly irregular. No significant murmurs, rubs, or gallops. Pulmonary: Clear to auscultation anteriorly. Abdomen: Soft. Postoperative tenderness. Nondistended. Positive bowel sounds. Extremities: Moves all extremities well. No significant clubbing, cyanosis, or edema. Dermatologic: Evaluation reveals no evidence of rash. LABORATORY DATA: White blood cell count 8.68, hemoglobin 11.8, hematocrit 36.2, platelet count is 100,000. PT 16.7, INR is 1.33. Sodium 147, potassium 2.2, chloride 108, bicarb 28. BUN 12, creatinine 0.7, glucose 124, calcium 7.0, total bilirubin 0.67, total protein 5.3, albumin 2.6. Alkaline phosphatase 71, AST 22, ALT 15. ASSESSMENT AND PLAN: 1. Cecal perforation--patient is postoperative day #4. Thus far, postoperative course has progressed as expected. We will continue him on a full liquid diet per General Surgery. We will continue intravenous Zosyn in the setting of perforation. We will defer further surgical postoperative orders to General Surgery's discretion. 2. Hypertension--blood pressure has been modestly elevated over the course of the last 24 hours. At this point, we will hold off on any further intervention. As an outpatient, he takes losartan. Depending on his progress, we may need to resume therapy. 3. Hypokalemia--this is quite impressive. We will continue patient on potassium 40 mEq twice daily. We will encourage oral intake. 4. Borderline hypomagnesemia--we will provide a dose of magnesium today. While this is not low, this certainly could be contributing to his hypokalemia. 5. Hypocalcemia--we will provide patient a dose of intravenous calcium chloride. 6. Anticoagulation--patient's Coumadin has been resumed. INR is trending upwards. We will continue his current regimen. 7. Altered mental status/confusion--at present time, this is mild. I am concerned this may be secondary to his dose of Dilaudid this morning. There is no evidence of focal finding on examination. We will discontinue Dilaudid in exchange for as-needed Tylenol. We will follow this. Should this persist, we will consider whether further radiologic imaging is appropriate. 8. Thrombocytopenia--platelet count remains slightly low, but stable at 100. We will remain aware this may be secondary to Zosyn therapy. At this point, the benefits of therapy outweigh the risk. 9. Disposition--at this point, patient continues to require fpc care in a hospital setting. 10. Profound weakness--this is likely a consequence of his acute illness and surgical intervention. We will encourage patient up in chair twice daily with meals. We will consult physical therapy for further assistance. 11. Disposition--at this point, patient continues to require fpc care in a hospital setting. We will plan discharge home or to rehabilitation once appropriate. cc: MD Kevan Chapman MD
[2019-05-02] MEDS: COUMADIN PO SCH (22:26)
[2019-05-03] MEDS: ZOSYN 3.375 GM in NS 50 ML IV SCH ×4 (03:08→22:15)
[2019-05-03 07:19] LABS: INR 1.28; PROTIME 16.2 Seconds (11.0-16.0)
[2019-05-03 07:50] LABS: AGAP 11; BUN 9 mg/dL (8-22); CALCIUM 7.2 mg/dL (8.8-10.2); CHLORIDE 105 mmol/L (98-107); COSMO 287; CREATININE 0.6 mg/dL (0.7-1.2); GLUCOSE 92 mg/dL (70-104); POTASSIUM 2.9 mmol/L (3.5-5.1); SODIUM 145 mmol/L (136-145); TCO2 29 mmol/L (25-35)
[2019-05-03 08:08] LABS: BASO# 0.01 X1000 (0.0-0.2); BASO% 0.1 % (0.0-0.8); EOS# 0.05 X1000 (0.0-0.7); EOS% 0.6 % (0.0-10.0); HEMATOCRIT 38.1 % (42.0-52.0); HEMOGLOBIN 12.5 g/dL (14.0-18.0); IMM GRAN# 0.04 X1000 (0.0-0.04); IMM GRAN% 0.5 % (0.0-0.5); LYMPH# 0.81 X1000 (1.2-3.4); MCH 29.7 PG (27-31); MCHC 32.8 g/dL (33-37); MCV 90.5 FL (81-99); MONO# 0.74 X1000 (0.11-0.59); MONO% 9.2 % (1.7-9.3); MPV 12.2 FL (7.4-10.4); NEUT# 6.43 X1000 (1.4-6.5); NEUT% 79.6 % (42.2-75.2); PLT 148 X1000 (130-400); RBC 4.21 XMIL (4.7-6.1); RDW 18.4 % (11.5-14.5); WBC 8.08 X1000 (4.8-10.8)
[2019-05-03] MEDS: ATIVAN IV SCH ×2 (09:47→22:38)
[2019-05-03] MEDS: ALDACTONE PO SCH (09:48)
[2019-05-03] MEDS: XANAX PO SCH ×2 (09:49→22:38)
[2019-05-03] MEDS: FLOMAX PO SCH (09:49)
[2019-05-03] MEDS: AVODART PO SCH (09:49)
[2019-05-03] MEDS: POTASSIUM CHLORIDE 20% LIQUID PO SCH ×2 (09:50→22:16)
--- NOTE | 2019-05-03 11:05 | PROGRESS NOTE ---
DATE: 05/03/2019 SUBJECTIVE: Mr. Gurdeep Nicholas is an 83-year-old, white male, who required urgent surgery by Dr. Hebert for a perforated cecum because of obstructing metastatic colon cancer. He now has a right-sided ostomy. His midline incision looks like it is healing well. His ostomy is functioning, and Mr. Nicholas appears to be progressing daily. He is awake and cooperative. His heart rate is 84, blood pressure 164/80, O2 saturation 97%. He is afebrile. He is on IV Zosyn. His white blood cell count is normal. His hematocrit is stable. He needs to get his potassium corrected on a daily basis. He has been restarted on Coumadin per Dr. tSewart. PLAN: I will advance his diet to a regular GI soft diet. Physical Therapy has been consulted to increase his activity. cc: MD Kevan Brewster MD
--- NOTE | 2019-05-03 14:07 | PROGRESS NOTE ---
DATE: 05/03/2019 SUBJECTIVE: Upon my arrival this morning, patient was sitting upright in a chair. He is much more interactive than yesterday. The patient has eaten a full liquid diet. Thus far, he has tolerated reasonably well. His energy level is low, but improving. He denies fevers, chills, nausea, vomiting, shortness of breath, or chest discomfort. OBJECTIVE: T-max 98.7 degrees, heart rate 77 to 88, respirations 14 to 24, blood pressure 125 to 176 over 69 to 90.General: Well nourished, well developed, no acute distress. Cardiovascular: Regular rate and rhythm. No significant murmurs, rubs, or gallops. Pulmonary: Clear to auscultation bilaterally. Abdomen: Soft. Postoperative tenderness, nondistended. Positive bowel sounds. Extremities: Moves all extremities well. No significant clubbing or cyanosis. Trace lower extremity edema bilaterally. Dermatologic: Evaluation reveals no evidence of rash. LABORATORY DATA: White blood cell count 8.08, hemoglobin 12.5, hematocrit 38.1, platelet count 148,000. PT 16.2, INR is 1.28, sodium 145, potassium 2.9, chloride 105, bicarb 29, BUN 9, creatinine 0.6, glucose 92, calcium 7.2. ASSESSMENT AND PLAN: 1. Cecal perforation-patient is postoperative day #5. We will continue postoperative management per General Surgery. His diet is slowly being advanced. We will continue Zosyn for now in the setting of perforation. 2. Hypertension-blood pressure has been labile over the last 24 hours. At this point, I feel the risk of resuming losartan outweighs the benefits. I suspect with time, this will need to be resumed. 3. Hypokalemia-patient is being treated with potassium replacement. Potassium has improved, although not to acceptable goal. For now, we will continue his current regimen. 4. Borderline hypomagnesemia-patient was treated with an additional dose of magnesium yesterday. I did not recheck magnesium today. We will recheck that in the morning. This certainly could contribute to his hypokalemia. 5. Hypocalcemia-patient was treated with intravenous calcium chloride yesterday. Calcium level remains low, but improving. 6. Anticoagulation-patient is treated with Coumadin therapy. INR is subtherapeutic. We will continue his current regimen. 7. Alteration of mental status/confusion-as noted yesterday, patient had been treated with Dilaudid in the early childhood hours. This likely contributed to his confusion. I discontinued Dilaudid yesterday. His pain has remained reasonably controlled. Mental status is approaching baseline. 8. Thrombocytopenia-patient's platelet count has improved from yesterday. I suspect this was situational. 9. Profound weakness-this likely is a consequence of his acute illness and surgical intervention. Nursing staff is instructed to assist patient to chair for all meals. Physical therapy has been consulted. 10. Disposition-at this point, patient continues to require prison care in a hospital setting. We will plan discharge home or to rehabilitation once appropriate. cc: MD Kevan Chapman MD
[2019-05-03] MEDS: COUMADIN PO SCH (22:16)
[2019-05-04] MEDS: ZOSYN 3.375 GM in NS 50 ML IV SCH ×4 (03:43→20:20)
[2019-05-04 06:41] LABS: BASO# 0.02 X1000 (0.0-0.2); BASO% 0.2 % (0.0-0.8); EOS# 0.07 X1000 (0.0-0.7); EOS% 0.8 % (0.0-10.0); HEMATOCRIT 37.6 % (42.0-52.0); HEMOGLOBIN 12.2 g/dL (14.0-18.0); IMM GRAN# 0.03 X1000 (0.0-0.04); IMM GRAN% 0.3 % (0.0-0.5); LYMPH# 1.18 X1000 (1.2-3.4); LYMPH% 13.6 % (20.5-51.1); MCH 29.5 PG (27-31); MCHC 32.4 g/dL (33-37); MONO# 0.88 X1000 (0.11-0.59); MONO% 10.2 % (1.7-9.3); MPV 11.1 FL (7.4-10.4); NEUT# 6.47 X1000 (1.4-6.5); NEUT% 74.9 % (42.2-75.2); PLT 112 X1000 (130-400); RBC 4.13 XMIL (4.7-6.1); RDW 18.2 % (11.5-14.5); WBC 8.65 X1000 (4.8-10.8)
[2019-05-04 07:26] LABS: AGAP 12; ALB/GLOB RATIO 0.9; ALBUMIN 2.6 g/dL (3.5-5.0); ALKALINE PHOSPHATASE 61 U/L (32-122); BUN 9 mg/dL (8-22); CALCIUM 7.3 mg/dL (8.8-10.2); CHLORIDE 103 mmol/L (98-107); COSMO 287; CREATININE 0.6 mg/dL (0.7-1.2); ESTIMATED GFR > 60; GLUCOSE 87 mg/dL (70-104); GOT 18 U/L (10-34); GPT 11 U/L (10-44); MAGNESIUM 1.8 mg/dL (1.5-2.7); SODIUM 145 mmol/L (136-145); TCO2 30 mmol/L (25-35); TOTAL BILIRUBIN 0.72 mg/dL (0.20-1.00); TOTAL PROTEIN 5.4 g/dL (6.3-8.3)
[2019-05-04 07:39] LABS: POTASSIUM 2.2 mmol/L (3.5-5.1)
--- NOTE | 2019-05-04 08:46 | PROGRESS NOTE ---
DATE: 05/04/2019 SUBJECTIVE: The patient has no complaints. In speaking with his family member, he has been tolerating solid food, but has been rather scant in his overall intake. He has not had any nausea or vomiting. He has good ostomy output. He was strongly encouraged to partake of his food more. OBJECTIVE: Vital Signs: Temperature 98.3, heart rate 76, respiratory rate 18, blood pressure 150/80, and 98% saturated on room air. General: The patient is alert and conversive. He is confused, but seems to generally grasp the situation. Lungs: Clear to auscultation. Cardiovascular: Irregularly irregular at approximately 80 beats per minute at the time of my examination. Abdomen: Slightly distended. Bowel sounds are present. He is nontender. Midline incision and staple line appears to be healing well. He has liquid stool in his cecostomy bag. LABORATORY DATA: White cell count 8.65, hemoglobin 12.2, potassium is 2.2, CO2 is 30, BUN 9, creatinine 0.6, calcium is 7.3, albumin 2.6. ASSESSMENT AND PLAN: 1. The patient is recovering from his cecal perforation and a cecostomy surgery. White cell count is normal. He has not had any fever. We will likely discontinue his Zosyn fairly soon. 2. Hypokalemia remains a problem. We had difficulty with this during last hospitalization. He will continue to be supplemented and hopefully we can get this up to an acceptable level. 3. The patient is on 1 mg of Coumadin therapy. When he was partaking at his usual rate of Coumadin use, his INR was way too high. Somehow or another, this was related to his chemotherapy. Having been off of it for a while, it is a little bit slower recovery. During his last hospitalization, he got a considerable amount of vitamin K. I am content to slowly let this build up to a near therapeutic level. 4. Although the patient is weak, he did reasonably well with physical therapy. With a gait belt, he was able to walk in the dangelo. In discussion with the patient's family member, it is unclear whether he would be able to return home. I put in a consult for rehabilitation placement. Since he lives in the [place] area probably, [facility] would be the best choice location[place] for him. cc: MD Kevan Santiago, MD
[2019-05-04] MEDS: FLOMAX PO SCH (10:26)
[2019-05-04] MEDS: AVODART PO SCH (10:26)
[2019-05-04] MEDS: ALDACTONE PO SCH (10:26)
[2019-05-04] MEDS: POTASSIUM CHLORIDE 20% LIQUID PO SCH ×2 (10:27→20:19)
[2019-05-04] MEDS: XANAX PO SCH ×2 (10:27→20:18)
--- NOTE | 2019-05-04 10:53 | GENERAL SURGERY PROGRESS NOTE ---
DATE: 05/04/2019 SUBJECTIVE: Mr. Nicholas is doing well. He is now on solid food, eating some. His cecostomy is functioning. His wound looks okay. He is afebrile with stable hemodynamics. PLAN: Plan is to transfer him to rehab for a little while to get stronger before he goes home. We will work on obtaining a bed. The family requests [facility] facility. Will also get Jacinta, the stoma nurse, to see him. cc: Kevan Hebert MD
[2019-05-04] MEDS: ATIVAN IV SCH ×2 (14:43→20:18)
[2019-05-04] MEDS: COUMADIN PO SCH (20:18)
[2019-05-05] MEDS: ZOSYN 3.375 GM in NS 50 ML IV SCH ×3 (03:45→08:53)
[2019-05-05 06:52] LABS: BASO# 0.03 X1000 (0.0-0.2); BASO% 0.4 % (0.0-0.8); EOS# 0.09 X1000 (0.0-0.7); EOS% 1.1 % (0.0-10.0); HEMATOCRIT 36.7 % (42.0-52.0); HEMOGLOBIN 11.9 g/dL (14.0-18.0); IMM GRAN# 0.03 X1000 (0.0-0.04); IMM GRAN% 0.4 % (0.0-0.5); LYMPH# 1.21 X1000 (1.2-3.4); LYMPH% 15.4 % (20.5-51.1); MCH 29.8 PG (27-31); MCHC 32.4 g/dL (33-37); MCV 91.8 FL (81-99); MONO# 0.71 X1000 (0.11-0.59); MONO% 9.1 % (1.7-9.3); MPV 10.8 FL (7.4-10.4); NEUT# 5.77 X1000 (1.4-6.5); NEUT% 73.6 % (42.2-75.2); PLT 133 X1000 (130-400); RDW 18.3 % (11.5-14.5); WBC 7.84 X1000 (4.8-10.8)
[2019-05-05 07:14] LABS: INR 1.33; PROTIME 16.8 Seconds (11.0-16.0)
[2019-05-05 07:30] LABS: AGAP 12; BUN 10 mg/dL (8-22); CALCIUM 7.1 mg/dL (8.8-10.2); CHLORIDE 104 mmol/L (98-107); COSMO 289; CREATININE 0.6 mg/dL (0.7-1.2); ESTIMATED GFR > 60; GLUCOSE 85 mg/dL (70-104); SODIUM 146 mmol/L (136-145); TCO2 30 mmol/L (25-35)
[2019-05-05 07:45] LABS: POTASSIUM 2.3 mmol/L (3.5-5.1)
[2019-05-05] MEDS: AVODART PO SCH (08:53)
[2019-05-05] MEDS: ALDACTONE PO SCH (08:54)
[2019-05-05] MEDS: FLOMAX PO SCH (08:54)
[2019-05-05] MEDS: XANAX PO SCH ×2 (08:54→20:32)
[2019-05-05] MEDS: POTASSIUM CHLORIDE 60 MEQ in NS 500 ML IV SCH ×2 (09:38→16:21)
--- NOTE | 2019-05-05 09:54 | PROGRESS NOTE ---
DATE: 05/05/2019 SUBJECTIVE: The patient is alone this morning in the room. He seems alert and oriented. He is conversing at his baseline level. There is no complaints. Denies specifically abdominal pain. His appetite is not good, but he is trying to eat a little bit. OBJECTIVE: Vital signs: 98.6, 81, 20, 151/77, 96% saturated on room air. Heart: Irregularly irregular, but rate controlled. Lungs are clear. Abdomen slightly distended. Nontender to palpation. Bowel sounds are present, and he has liquid stool output from the cecostomy. He does not appear septic. DIAGNOSTIC DATA: White cell count is 7.8, hematocrit 36.7. Potassium is 2.3, BUN is 10, creatinine 0.6. ASSESSMENT AND PLAN: 1. The patient is still recovering from his cecal perforation cecostomy surgery and seems to be doing well. He has had no white cell count and no fever in over a week. I am going to discontinue antibiotics. 2. The patient continues to be hypokalemic. He has had multiple supplementations of p.o. potassium and IV magnesium which has not led to any significant increase in his potassium. I am going to change him back to IV potassium for today and recheck that tomorrow. 3. The patient's Coumadin has been subtherapeutic throughout his hospitalization. While he was getting chemotherapy for his rectal cancer, his INR was all over the map, and his Coumadin dose was sharply reduced. The 1 mg dose of Coumadin seems to be inadequate, and I am going to increase that to 2. I would rather him be subtherapeutic for a while than for his INR to be as wildly high as it was before. 4. The patient is doing reasonably well with physical therapy. We will continue this. and in the next day or two bed availability will result in transfer to Rehab. 6. The patient remains in atrial fibrillation, rate controlled. 7. Do not resuscitate level 1. 8. Rectosigmoid adenocarcinoma. At present, he is not receiving any treatment. His tumor is unresectable. cc: MD Kevan Santiago MD [facility]
--- NOTE | 2019-05-05 13:00 | GENERAL SURGERY PROGRESS NOTE ---
DATE: 05/05/2019 SUBJECTIVE: Mr. Nicholas is doing well. OBJECTIVE: He is afebrile. Heart rate 81, blood pressure 151/77. His abdomen is soft and nontender. His staple line looks good. His cecostomy is working well. His potassium is 2.3, and I think that his potassium is being replaced. PLAN: He is ready for transfer to rehab as soon as it is okay with the medical physicians. cc: Kevan Hebert MD
[2019-05-05] MEDS: COUMADIN PO SCH (20:32)
[2019-05-06 07:53] LABS: AGAP 10; BUN 10 mg/dL (8-22); CALCIUM 7.7 mg/dL (8.8-10.2); CHLORIDE 106 mmol/L (98-107); COSMO 287; CREATININE 0.5 mg/dL (0.7-1.2); ESTIMATED GFR > 60; GLUCOSE 86 mg/dL (70-104); MAGNESIUM 1.7 mg/dL (1.5-2.7); POTASSIUM 2.6 mmol/L (3.5-5.1); SODIUM 145 mmol/L (136-145); TCO2 29 mmol/L (25-35)
[2019-05-06] MEDS ORDERED: POTASSIUM CHLORIDE 20% LIQUID PO ONE (08:46)
[2019-05-06] MEDS ORDERED: CHLORASEPTIC SPRAY MT PRN ×2 (08:48→09:04)
[2019-05-06] MEDS ORDERED: TESSALON PO PRN (08:48)
--- NOTE | 2019-05-06 09:21 | GENERAL SURGERY PROGRESS NOTE ---
DATE: 05/06/2019 Mr. Nicholas is doing generally well. He is eating satisfactorily. His cecostomy is functioning well. His wound was fine. We are awaiting transfer to rehab. His potassium today is 2.6. cc: Kevan Hebert MD
--- NOTE | 2019-05-06 09:27 | PROGRESS NOTE ---
DATE: 05/06/2019 SUBJECTIVE: His abdomen is doing well. He is eating well. His bowels are moving. His main complaint is his throat is dry and sore. I do not see any thrush in the throat. I may put him on some nystatin swish and swallow though, and I will give him some Chloraseptic to try, some Tessalon Perles for his dry cough. I think he does have a little bit of postnasal drainage. I do not appreciate any cervical adenopathy. He remains afebrile. OBJECTIVE: Vital signs: Temperature 98.5 degrees, pulse 89, respirations 19, blood pressure 180/95. HEENT: Pupils are equal and round. Lungs: Clear in all lung carroll. Cardiovascular: Regular rhythm and rate without murmur or S3. Urine output: 1400 mL. ASSESSMENT AND PLAN: 1. He was hoping to go to rehab. Yesterday his potassium was still too low, so supplement his potassium. Today is [place] so he will have to go tomorrow. He is recovering from a cecal perforation, cecostomy surgery per Dr. Hebert. Seems to be doing well. White blood cell count has come down and he is afebrile. His abdomen working well, eating. 2. Continues to have hypokalemia and we will supplement his potassium and magnesium. 3. Coumadin was suprapubic throughout the hospitalization while he was getting chemotherapy for rectal cancer. His INR has reduced and so Dr. Stewart had increased his Coumadin to 2 mg I believe daily. 4. Doing well with physical therapy. Continue. 5. Hopefully he can go home tomorrow or go to rehab tomorrow. I think they are hoping to go to [facility]. 6. Atrial fibrillation. Rate controlled. 7. He is a do not resuscitate level 1. 8. Rectosigmoid adenocarcinoma. Continue his plan of treatment with Oncology. LABORATORY DATA: This morning, potassium 2.6, BUN 10, creatinine 0.5, sodium 145, and his magnesium was 1.7. He is getting potassium twice a day and we will see what his level is again tomorrow. Start him on Tessalon Perles, give him Chloraseptic spray. cc: MD Kevan Ag MD
[2019-05-06] MEDS: POTASSIUM CHLORIDE 20% LIQUID PO SCH ×2 (10:58→20:57)
[2019-05-06] MEDS: ALDACTONE PO SCH (10:58)
[2019-05-06] MEDS: FLOMAX PO SCH (10:58)
[2019-05-06] MEDS: AVODART PO SCH (10:58)
[2019-05-06] MEDS: MAG-OX PO SCH ×2 (10:59→20:57)
[2019-05-06] MEDS: XANAX PO SCH (10:59)
[2019-05-06] MEDS: COUMADIN PO SCH (20:57)
[2019-05-07] MEDS: XANAX PO SCH ×2 (01:37→08:04)
[2019-05-07 07:33] LABS: AGAP 10; BUN 11 mg/dL (8-22); CALCIUM 7.9 mg/dL (8.8-10.2); CHLORIDE 105 mmol/L (98-107); COSMO 286; CREATININE 0.6 mg/dL (0.7-1.2); ESTIMATED GFR > 60; GLUCOSE 98 mg/dL (70-104); MAGNESIUM 1.8 mg/dL (1.5-2.7); POTASSIUM 3.2 mmol/L (3.5-5.1); SODIUM 144 mmol/L (136-145); TCO2 29 mmol/L (25-35)
[2019-05-07] MEDS: AVODART PO SCH (08:04)
[2019-05-07] MEDS: FLOMAX PO SCH (08:04)
[2019-05-07] MEDS: MAG-OX PO SCH (08:04)
[2019-05-07] MEDS: ALDACTONE PO SCH (08:04)
[2019-05-07] MEDS: POTASSIUM CHLORIDE 20% LIQUID PO SCH (08:05)
[2019-05-07 08:06] LABS: INR 1.26; PROTIME 16.1 Seconds (11.0-16.0)
--- NOTE | 2019-05-07 09:57 | DISCHARGE SUMMARY ---
ADMISSION DATE: 04/28/2019 DISCHARGE DATE: HISTORY OF PRESENT ILLNESS: Mr. Nicholas is an 83-year-old who was admitted on 04/28/2019. He is a patient of Dr. Ike Stewart. He was in the hospital recently under Dr. Stewart's care with abdominal distention. [place] it was due to an ileus. He was discharged home, started complaining of severe abdominal pain. He presented to the emergency department once again. Chest x-ray showed free air verified on CT scan as well. PAST MEDICAL HISTORY: Patient with hypertension, hypercholesterolemia, degenerative arthritis, remote history of prostatitis, chronic atrial fibrillation, metabolic syndrome, and metastatic rectal cancer for which he is being treated by Dr. Antunez. PREVIOUS SURGERIES: He has had cataract surgery, laparoscopic cholecystectomy, ERCP with splint, sphincterotomy. MEDICATIONS: His medications when he came in are Cozaar 100 mg a day, Klor-Con 40 mEq 3 times a day, Coumadin 1 mg at bedtime, Aldactone 25 mg a day, Avodart 1 capsule a day, Celebrex 200 mg a day, Xanax 1 mg twice a day, Flomax 0.4 mg a day, zinc 100 mg twice a day, multivitamins, tramadol every 6 hours as needed, MiraLAX daily, vitamin B12, fish oil 1200 mg twice a day. ALLERGIES: Has no known drug allergies. SOCIAL HISTORY: She is . She does have an attentive neighbor. No smoking or alcohol usage. ADMISSION DIAGNOSIS/HOSPITAL COURSE: He came in, found a perforated viscus with a history of metastatic rectal cancer. The patient had an abdominal pelvic CT that showed significant pneumoperitoneum indicating ruptured hollow viscus, although exact source was not clear. Focal circumferential thickening in the rectosigmoid region is suspicious for neoplasm and possible site of perforation. No directly adjacent free air is identified. Multiple distended loops of small bowel probably related to distal colonic obstruction. Otherwise, the solid viscera of the abdomen and pelvis were essentially stable. He went for surgery under Dr. Kevan Hebert, perforated anterior cecum. So, he had exploratory laparotomy and exteriorization of the perforated cecum. He did well postoperatively. He is on Coumadin for a history of atrial fibrillation, and his Coumadin level did go up, so held the Coumadin for a while. He healed well and started having bowel motility. He does have stage IV colon cancer. Operative description of the cancer being adhered to the abdominal wall, so followed by Dr. Antunez, and we are hoping to get him to rehab. He was tolerating a regular diet. His potassium was low, supplemented potassium and magnesium, and we held his Coumadin. He was only on Coumadin 1 mg, and his potassium did come up to 3.2. His magnesium is 1.8. His Coumadin level was 16.1, so we will let him go to rehab today. He was supposed to go a couple of days ago; however, something happened with transportation, and so we will see if we can let him go today, and I think it is [place] or at [facility]. DISCHARGE MEDICATIONS: He will be on Xanax 1 mg b.i.d., Tylenol as needed, Tessalon Perles p.r.n., Avodart 0.5 mg daily, Mag-Ox 800 mg b.i.d. continue and potassium 40 mEq. He was taking it 3 times a day, so we will make sure that is 3 times a day. Aldactone 12.5 mg p.o. daily, Flomax 0.4 mg a day, Coumadin he is on 2 mg every night at bedtime, and that is his plan for discharge medications. cc: MD Kevan Ag MD
[2019-05-07 11:20] VITALS: BP 162/90
== END 2019-05-07 12:02 | DRG 330 ==
LOC: SUPCPDRO → ED 15:24 → ICU 21:42 → 4N 05-01 15:56
PROVIDERS: ADMIT Surgery; ATTEND Surgery
PROC: GE.COLS (2019-04-28 19:12)

== ENCOUNTER 2019-05-09 14:53 | Inpatient (IN) ==
[2019-05-09] MEDS ORDERED: NS 1,000 ML IV ONE (15:05)
[2019-05-09] MEDS ORDERED: MAXIPIME 2 GM in NS 100 ML IV ONE (15:05)
[2019-05-09] MEDS ORDERED: VANCOMYCIN 1 GM/NS 1 GM/250 ML IVPB IV ONE (15:05)
[2019-05-09] MEDS ORDERED: NS 500 ML IV ONE (15:05)
--- NOTE | 2019-05-09 15:50 | Diag Imaging Result Doc PS360 ---
CHEST-1 VIEW - 05/09/2019 INDICATION: sepsis COMPARISON: 04/28/2019 FINDINGS: Stable right chest port. The lungs are clear. Heart size is normal. No pneumothorax or pleural effusion. IMPRESSION: Negative exam. Electronically signed by Tereso Thomas 05/09/2019 3:48 PM
[2019-05-09 15:53] LABS: BASO# 0.02 X1000 (0.0-0.2); BASO% 0.2 % (0.0-0.8); EOS# 0.04 X1000 (0.0-0.7); EOS% 0.4 % (0.0-10.0); HEMATOCRIT 43.8 % (42.0-52.0); HEMOGLOBIN 13.7 g/dL (14.0-18.0); IMM GRAN# 0.03 X1000 (0.0-0.04); IMM GRAN% 0.3 % (0.0-0.5); LYMPH# 1.38 X1000 (1.2-3.4); LYMPH% 12.4 % (20.5-51.1); MCH 29.4 PG (27-31); MCHC 31.3 g/dL (33-37); MONO# 1.18 X1000 (0.11-0.59); MONO% 10.6 % (1.7-9.3); MPV 10.2 FL (7.4-10.4); NEUT# 8.52 X1000 (1.4-6.5); NEUT% 76.1 % (42.2-75.2); PLT 263 X1000 (130-400); RBC 4.66 XMIL (4.7-6.1); RDW 18.4 % (11.5-14.5); WBC 11.17 X1000 (4.8-10.8)
[2019-05-09 15:56] LABS: ALLEN TEST NO; BE 6.1 mmoll (-3.0-3.0); BLOOD TYPE ARTERIAL; HCO3-(ACT) 29.6 mmoll (20.0-26.0); METHB 0.3 % (0.0-1.5); O2(CT) 17.8 mL/dL (15.0-23.0); PCO2(98.6) 38 mmHg (35-45); PO2(98.6) 68 mmHg (60-100); SAMPLE BLOOD; SAO2 93.9 % (95.0-100.0); THB 13.6 g/dL (11.5-17.4)
[2019-05-09 15:57] LABS: MODALITY ROOM AIR
[2019-05-09 16:21] LABS: AGAP 13; ALBUMIN 3.6 g/dL (3.5-5.0); ALKALINE PHOSPHATASE 85 U/L (32-122); BUN 15 mg/dL (8-22); CALCIUM 8.6 mg/dL (8.8-10.2); CHLORIDE 102 mmol/L (98-107); CK PROFILE 81 U/L (24-204); COSMO 288; CREATININE 0.8 mg/dL (0.7-1.2); ESTIMATED GFR > 60; GLUCOSE 103 mg/dL (70-104); GOT 20 U/L (10-34); GPT 13 U/L (10-44); POTASSIUM 4.9 mmol/L (3.5-5.1); SODIUM 144 mmol/L (136-145); TCO2 29 mmol/L (25-35); TOTAL BILIRUBIN 0.88 mg/dL (0.20-1.00); TOTAL PROTEIN 7.1 g/dL (6.3-8.3)
[2019-05-09 16:58] LABS: INR 1.27; PROTIME 16.1 Seconds (11.0-16.0)
[2019-05-09 16:59] LABS: PTT 43.7 Seconds (22.3-41.8)
--- NOTE | 2019-05-09 17:49 | Diag Imaging Result Doc PS360 ---
CT ABD/PELVIS W/IV CONT ONLY - 05/09/2019 INDICATION: sepsis, recent colon resection COMPARISON: 04/28/2019 FINDINGS: There is some patchy atelectasis in the lung bases. There is mild cardiomegaly. There is some air in the biliary duct system of the liver. There are surgical clips at the hepatic hilum. There is heterogeneous hypoenhancement of the left kidney. No hydronephrosis or renal stone. Stable hyperdense cyst or mass of the lateral midpole the right kidney. There is a right lower quadrant ostomy. No free air or free fluid. No bowel obstruction. Urinary bladder, prostate, and rectum are normal. There are moderate degenerative changes of the spine. No acute or suspicious bony lesion. IMPRESSION: 1. Inflammatory-appearing hypoenhancement of the left kidney just pyelonephritis. 2. Otherwise, no significant acute process. This exam was performed using automated exposure control, adjustment of mA or kV according to patient size, and/or use of iterative reconstruction technique Electronically signed by Tereso Thomas 05/09/2019 5:47 PM
--- NOTE | 2019-05-09 19:08 | PROVIDER DOCUMENTATION ---
This chart was entered by Gaye Reed Scribe, acting as scribe for Carlos Ahuja MD. HPI-General Adult - General Stated Complaint: AMS/ FEVER Time Seen by Provider: 05/09/19 15:05 Source: patient, family (daughter), EMS ([facility]), intermediate records Allergies/Adverse Reactions: Patient Allergies Allergy/AdvReac Type Severity Reaction Status Date / Time No Known Allergies Allergy Verified 05/09/19 15:16 Home Medications: Home Medication List Medication Instructions Recorded Confirmed Last Taken Type Dutasteride [Avodart] 1 cap PO DAILY 02/05/13 04/28/19 04/28/19 History Tamsulosin [Flomax] 0.4 mg PO DAILY #30 capsule 02/06/13 04/28/19 04/28/19 Rx Cyanocobalamin (Vitamin B-12) 1,000 mcg PO DAILY 04/20/19 04/28/19 04/28/19 History [B-12] Fish Oil/Dha/Epa [Fish Oil 1,200 1 ea PO BID 04/20/19 04/28/19 04/28/19 History mg Fish Oil] Multivitamin [Multi-Vitamin Daily] 1 tab PO DAILY 04/20/19 04/28/19 04/28/19 History Polyethylene Glycol 3350 [Miralax] 17 gm PO DAILY 04/20/19 04/28/19 04/28/19 History Vit B Comp with C/Calcium Carb 1 ea PO DAILY 04/20/19 04/28/19 04/28/19 History [Gnp B-Complex Plus Vit C Tab] Zinc Gluconate [Zinc] 100 mg PO BID 04/20/19 04/28/19 04/28/19 History Losartan [Cozaar] 100 mg PO DAILY #30 tab 04/25/19 04/28/19 04/28/19 Rx Potassium Chloride E.r. [Klor-Con] 40 meq PO TID #20 tab 04/25/19 04/28/19 04/28/19 Rx Spironolactone [Aldactone] 12.5 mg PO DAILY #30 tab 04/25/19 04/28/19 04/28/19 Rx Acetaminophen [Tylenol] 650 mg PO Q6H PRN PRN tab 05/07/19 Unknown Rx Alprazolam [Xanax] 1 mg PO BID 30 Days #60 tab 05/07/19 Unknown Rx Benzonatate [Tessalon] 100 mg PO TID PRN PRN cap 05/07/19 Unknown Rx Magnesium Oxide [Mag-Ox] 800 mg PO BID tab 05/07/19 Unknown Rx Tramadol HCl 50 mg PO Q4-6H PRN PRN 20 Days #40 05/07/19 Unknown Rx tab Warfarin [Coumadin] 2 mg PO QHS tab 05/07/19 Unknown Rx - History of Present Illness -Gen Adult Nature of Presenting Problems: Pt is an 83 yowm brought to the ED by [facility] from [facility] in [place] with fever, weakness, and disorientation. Pt recently had abdominal surgery and was ambulatory until today according to EMS. Pt is mumbling and confused. Onset/Duration: reports: 24 hours ago (according to EMS and [facility]) Timing: reports: still present Review of Systems - Adult - REVIEW OF SYSTEMS - ADULT ROS:: unobtainable per condition Constitutional: reports: see HPI, fever Eyes: reports: no symptoms reported Ears, Nose, Mouth & Throat: reports: no symptoms reported Cardiovascular: reports: no symptoms reported Respiratory: reports: no symptoms reported Gastrointestinal: reports: no symptoms reported Genitourinary: reports: no symptoms reported Musculoskeletal: reports: no symptoms reported Integumentary: reports: see HPI Neurological: reports: see HPI, slurred speech Psychiatric: reports: no symptoms reported Endocrine: reports: no symptoms reported Hematologic/Lymphatic: reports: no symptoms reported Allergic/Immunologic: reports: no symptoms reported All Other Systems: Reviewed and Negative Past History - Adult - PAST MEDICAL HISTORY-ADULT Review of Records: reports: Old Records Reviewed, Nursing Assessment Review, Medications Reviewed, Social history reviewed & non-contributory. Major Childhood Illnesses: reports: denies history Cardiovascular: reports: A-Fib, HTN, hyperlipidemia Respiratory: reports: denies history Gastrointestinal: reports: cancer (metastatic rectal), GERD Obstetrical/Gynecological: reports: denies history Genitourinary: reports: kidney stones Musculoskeletal: reports: denies history Neurological: reports: denies history Psychiatric: reports: denies history Endocrine/Immune: reports: denies history Other Conditions: reports: denies history - PRIOR SURGERIES/PROCEDURES Surgical/Procedure History: reports: reviewed, not pertinent, cholecystectomy - IMMUNIZATION STATUS Childhood Immunizations: See Nurse Assessment Flu Vaccine: See Nurse Assessment - FAMILY HISTORY Family History: reviewed, not pertinent - SOCIAL HISTORY Smoking: non-smoker Living Situation: care facility ([facility]) Physical Exam-General - PHYSICAL EXAM-ADULT Initial Vital Signs Reviewed: Yes (Temp 99.8, HR 103 ) - CONSTITUTIONAL General Appearance: moderate distress, lethargic, other (unresponsive) - EYES Eyes: PERRL/EOMI - HEAD, EARS, NOSE, MOUTH & THROAT HENMT: moist mucous membranes - NECK Neck: non-tender - RESPIRATORY Respiratory: chest non-tender, decreased rate (semetrical) - CARDIOVASCULAR Cardiovascular: tachycardia, other (occasional PVCs) - GASTROINTESTINAL (ABDOMEN) Abdominal Exam: normal bowel sounds, non tender, soft - SKIN Integumentary: normal turgor - NEUROLOGIC Neurologic: motor weakness - PSYCHIATRIC Psych/Mental Status: disoriented x 3 Progress - PLAN OF CARE/RESULTS Result Diagrams: 05/09/19 15:40 05/09/19 15:40 - EKG 1 Time of EKG reading by physician:: 15:38 EKG Read and Signed by:: Carlos Ahuja EKG Interpretation (*Must complete 3 of following elements*): Abnormal Rate: 108 Rhythm: Atrial fibrillation w/rapid ventricular response Prior EKG Comparison: unchanged from prior (was in [facility] on 04/20/19) Comments: Cannot rule out Inferior infarct, age undetermined - XRAY 1 XRAY Study: Chest Impression: See EMR Report (CHEST-1 VIEW - 05/09/2019 INDICATION: sepsis COMPARISON: 04/28/2019 FINDINGS: Stable right chest port. The lungs are clear. Heart size is normal. No pneumothorax or pleural effusion. IMPRESSION: Negative exam. Electronically signed by Tereso Thomas 05/09/2019 3:48 PM 05/09/19 1548 Interpreting Physician: Tereso Thomas MD Dictated Date/Time: 05/09/19 1547 cc: Carlos Ahuja MD; Hua Stewart MD) - CONSULTS/PCP/HOSPITALIST Notification #1 *Consult/PCP/Hospitalist*: Terry Time Discussed: 15:15 Reason/Comments: get labs back and call Consult Disposition: Will see in ED, Admit Departure - Departure Date of Disposition Decision: 05/09/19 Time of Disposition Decision: 15:20 DIAGNOSIS: Altered mental status Qualifiers: Altered mental status type: somnolence Qualified Code(s): R40.0 - Somnolence Disposition: ADMITTED INPATIENT 09 Certified Medical Emergency: Emergent Condition: Fair Referrals and Follow-Ups: Hua Stewart MD [Primary Care Provider] - - Critical Care Note This patient required my direct & personal management of CC.: No Attestation - Physician/ NINOSKA Attestation Patient care was provided by Advanced Practice Provider:: No The physician spent face to face time with patient:: Yes Advanced Practice Provider documentation review:: Supervising physician onsite and consulted in the evaluation and care of this patient. The physician did have a face to face encounter with the patient. This chart was documented by the indicated scribe, (Gaye Reed, Mitch) and accurately reflects the services I performed and decisions made by me, Carlos Ahuja MD, as attested by the provider's signature.
[2019-05-09] MEDS ORDERED: ZOFRAN IV PRN (19:29)
[2019-05-09] MEDS ORDERED: TYLENOL PO PRN ×2 (19:29→21:29)
--- NOTE | 2019-05-09 19:54 | Diag Imaging Result Doc PS360 ---
CT HEAD W/O CONTRAST - 05/09/2019 INDICATION: ALOC COMPARISON: None FINDINGS: There is moderate diffuse cerebral atrophy. No intracranial mass or hemorrhage. There is moderate patchy cerebral white matter lucency compatible with chronic microvascular ischemia. The skull is intact. The sinuses, mastoids, and middle ears are clear. IMPRESSION: Cerebral atrophy and mild chronic microvascular ischemia. No acute process. This exam was performed using automated exposure control, adjustment of mA or kV according to patient size, and/or use of iterative reconstruction technique Electronically signed by Tereso Thomas 05/09/2019 7:52 PM
[2019-05-09 20:15] LABS: URINE SOURCE CATH
[2019-05-09 20:19] LABS: BILIRUBIN URINE NEGATIVE (NEGATIVE); BLOOD URINE SMALL (NEGATIVE); COLOR YELLOW; GLUCOSE URINE NEGATIVE (NEGATIVE); KETONE URINE NEGATIVE (NEGATIVE); LEUKOCYTES URINE NEGATIVE (NEGATIVE); NITRITE URINE NEGATIVE (NEGATIVE); PH URINE 6.5; PROTEIN URINE 100 mg/dL (NEGATIVE); SP GRAVITY URINE 1.048; TURBIDITY URINE CLEAR (CLEAR); UR EPITHELIAL CELLS <10 /HPF (<10); URINE BACTERIA NEGATIVE /HPF; URINE RBC <10 /HPF (<10); URINE WBC <10 /HPF (<10); UROBILINOGEN URINE NORMAL (NORMAL)
[2019-05-09 20:35] LABS: UR AMPHETAMINES QUAL NONE DETECTED (NONE DETECT); UR BARBITUATES QUAL NONE DETECTED (NONE DETECT); UR BENZODIAZEPIN QUAL NONE DETECTED (NONE DETECT); UR CANNABINOIDS QUAL NONE DETECTED (NONE DETECT); UR COCAINE QUAL NONE DETECTED (NONE DETECT); UR METHADONE QUAL NONE DETECTED (NONE DETECT); UR OPIATES QUAL NONE DETECTED (NONE DETECT); UR OXYCODONE QUAL NONE DETECTED (NONE DETECT); UR PCP QUAL NONE DETECTED (NONE DETECT)
--- NOTE | 2019-05-09 21:26 | HISTORY AND PHYSICAL ---
CHIEF COMPLAINT: Mental status change. HISTORY OF PRESENT ILLNESS: This 83-year-old white male was recently hospitalized with a cecal perforation which resulted in a cecostomy and repair of the perforation. Further investigation of his known rectosigmoid cancer showed that it was obstructive and was unresectable. He had previously been treated for this stage IV colon cancer by means of chemotherapy. The patient had a reasonable recovery from the perforation and surgery and was transferred to [facility] for rehab on the . The patient's significant other who was present in the emergency room stated he did well for several days and was pretty much to himself. He had normal function with his cecostomy. Was really having no difficulty. She stated that today he was suddenly unresponsive, uncooperative, totally confused, and they transferred him to the emergency room for evaluation. In the emergency room, he was found to be tachycardic and very confused. He had a fever of 99.8 but his workup was otherwise negative for source of infection. His significant other did not relate any new medications being tried or any other sedatives that may have confused him. He is admitted for mental status change and workup of potential problems that could have caused it. PAST MEDICAL HISTORY: 1. Hypertension. 2. Degenerative arthritis of the hips. 3. Hypercholesterolemia. 4. Chronic atrial fibrillation with rate control and anticoagulation on warfarin. 5. Metabolic syndrome. 6. Metastatic rectal cancer with single lung nodule. PAST SURGICAL HISTORY: 1. Right cataract surgery. 2. Laparoscopic cholecystectomy. 3. ERCP with sphincterotomy. 4. Cecal perforation with cecostomy. USUAL MEDICATIONS: Avodart 0.5 mg p.o. daily, Celebrex 200 mg p.o. daily, Coumadin 5 mg p.o. at bedtime, Flomax 0.4 mg p.o. daily, Cozaar 100 mg p.o. daily, Xanax 1 mg p.o. b.i.d., Pravastatin 40 mg p.o. at bedtime. ALLERGIES: No known drug allergies. REVIEW OF SYSTEMS: Please see history of present illness. There has been no wound infection. There has been no prior evidence of urinary tract problem. The patient has not been coughing, wheezing or short of breath. He has not complained of any palpitations. He has not had any nausea or vomiting that we are aware of.Vital Signs: 99.8, 103 to 120, variable heart rate, respirations initially 24, blood pressure 153/80. PHYSICAL EXAMINATION: The patient is markedly confused compared to baseline. His eyes are open. He tries to respond but generally responds inappropriately and does not follow commands. LUNGS: Clear to auscultation. CARDIOVASCULAR: Is irregularly irregular with a variable rate between 100 and 120. ABDOMEN: Shows bowel sounds are present. There is normal cecostomy output. Suture line in the midline appears not to be infected. EXTREMITIES: Show no peripheral edema. LABORATORY: White cell count 11.1, hemoglobin 13.7, INR 1.27. Arterial blood gas 7.50, pCO2 of 38, PO2 of 68 and 94% saturated on room air. Serum chemistries are normal with a potassium of 4.9, BUN 15, creatinine 0.8. Urinalysis was negative. Urine drug screen is negative. ASSESSMENT AND PLAN: 1. The patient has had acute mental status change could be metabolic. We do not have any evidence that he was given any other medications which could have affected him psychotropically. He has been on benzodiazepines for years and why that did not come back positive on his urine toxicology is inexplicable. If they denied him this medication in the [facility] and withdrawal could possibly result in his mental status change. It was also noted the patient was alkalemic on his arterial blood gas indicating hyperventilation. Again this could be related to anxiety from withdrawal of medications. 2. I think we are obliged to treat the patient as if he has infection based on his presentation, age and propensity for bad things such as this to happen in a rehabilitation situation. We will restart his anticoagulation as soon as practicable and monitor blood pressure and other appropriate parameters. 1. Do not resuscitate level 1. cc: Hua Stewart MD [facility]
[2019-05-09] MEDS ORDERED: ULTRAM PO PRN (21:29)
[2019-05-09] MEDS: COUMADIN PO SCH (21:44)
[2019-05-09] MEDS: XANAX PO SCH ×2 (21:44→23:16)
[2019-05-09] MEDS: ZOSYN 2.25 GM in NS 50 ML IV SCH (21:44)
[2019-05-09] MEDS: ATIVAN IV PRN (21:44)
[2019-05-10] MEDS: ZOSYN 2.25 GM in NS 50 ML IV SCH ×4 (04:26→20:56)
[2019-05-10] MEDS: ATIVAN IV PRN (04:26)
[2019-05-10] MEDS: ALDACTONE PO SCH (09:32)
[2019-05-10] MEDS: AVODART PO SCH (09:33)
[2019-05-10] MEDS: COZAAR PO SCH (09:34)
[2019-05-10] MEDS: XANAX PO SCH ×2 (09:35→20:57)
[2019-05-10] MEDS: THERA M PLUS PO SCH (09:35)
[2019-05-10] MEDS: FLOMAX PO SCH (09:35)
[2019-05-10] MEDS: VITAMIN B-12 PO SCH (09:35)
[2019-05-10 11:37] LABS: ALLEN TEST YES; BE 5.4 mmoll (-3.0-3.0); BLOOD TYPE ARTERIAL; HCO3-(ACT) 29.1 mmoll (20.0-26.0); METHB 0.5 % (0.0-1.5); O2(CT) 16.6 mL/dL (15.0-23.0); O2HB 95.3 % (95.0-99.0); PCO2(98.6) 38 mmHg (35-45); PO2(98.6) 127 mmHg (60-100); SAMPLE BLOOD; SAO2 96.1 % (95.0-100.0); THB 12.2 g/dL (11.5-17.4); pH(98.6) 7.49 (7.35-7.45)
[2019-05-10 11:38] LABS: MODALITY ROOM AIR
--- NOTE | 2019-05-10 11:47 | PROGRESS NOTE ---
DATE: 05/10/2019 SUBJECTIVE: The patient's significant other stated that he was very sleepy this morning and not interactive. Review of his EMAR showed that he got two doses of Ativan, one at 9 p.m. and one at 4 a.m., even though this was written as a p.r.n. I am not sure that he had significant agitation to warrant its use, so that has been discontinued. He will continue on his regular Xanax. The significant other is also worried because he is not eating. OBJECTIVE: Vital Signs: Temperature 98.7, pulse 98, respirations 25, blood pressure 147/64, saturating 97% on room air. General: The patient is asleep. He will arouse, but is confused. Lungs: Clear. Cardiovascular: Irregularly irregular at approximately 100 beats per minute at the time of my examination. Abdomen: Bowel sounds are present. The patient has an effusion about the left knee, but it is slightly warm and swollen, but it is not red or hot to touch. LABORATORY DATA: There was no laboratory drawn today. He has an ABG pending. ASSESSMENT AND PLAN: 1. Repeat ABG is pending to rule out hyperventilation. 2. Part of his encephalopathy here in the hospital is related to overuse of Ativan. We have discontinued this. It was a curious finding that despite being given his "regular medications," he was negative for benzodiazepines when he came into the emergency room. 3. The patient is on antibiotics for presumed metabolic encephalopathy related to some type of infection, although we have not located anything at present. We will continue to monitor this situation. 4. The patient is chronically anticoagulated, subtherapeutic. I am satisfied with the numbers for right now. 5. DO NOT RESUSCITATE level 1. cc: Hua Stewart MD
[2019-05-10] MEDS: COUMADIN PO SCH (20:56)
[2019-05-11] MEDS: ZOSYN 2.25 GM in NS 50 ML IV SCH ×4 (04:34→21:39)
--- NOTE | 2019-05-11 07:41 | EKG Report ---
Test Performed on : 05/09/2019 3:54:13 PM Test Reason : ED. NO EKG ORDER FOR MUSE Blood Pressure : / mmHG Vent. Rate : 108 BPM Atrial Rate : 104 BPM P-R Int : 000 ms QRS Dur : 072 ms QT Int : 322 ms P-R-T Axes : 000 004 042 degrees QTc Int : 431 ms Atrial fibrillation. with rapid ventricular response. Cannot rule out Inferior infarct (cited on or before 20-APR-2019) Abnormal ECG When compared with ECG of 20-APR-2019 08:15, (Unconfirmed) QRS duration has decreased T wave inversion no longer evident in Lateral leads Unconfirmed Result
[2019-05-11] MEDS: ALDACTONE PO SCH (09:11)
[2019-05-11] MEDS: VITAMIN B-12 PO SCH (09:11)
[2019-05-11] MEDS: FLOMAX PO SCH (09:12)
[2019-05-11] MEDS: XANAX PO SCH ×2 (09:12→21:40)
[2019-05-11] MEDS: THERA M PLUS PO SCH (09:12)
[2019-05-11] MEDS: AVODART PO SCH (09:12)
[2019-05-11] MEDS: COZAAR PO SCH (09:12)
--- NOTE | 2019-05-11 19:07 | PROGRESS NOTE ---
DATE: 05/11/2019 SUBJECTIVE: The patient's significant other agreed they had a "rough night." He did not sleep, was agitated and needs constant reassurance. I held his p.r.n. Ativan because I thought it made him more confused and more difficult to deal with. We discussed actions and medications going forward which may help him sleep. OBJECTIVE: Vital Signs: 97.5, 96, 12, 128/74. The patient is awake and responsive. He seems to be at or approaching baseline level of cognitive interaction and function. His speech is somewhat slurred but this is his manner of talking, is not related to any neurological event. Lungs: Clear. Cardiovascular: Irregularly irregular. Extremities: No peripheral edema. Abdomen: Slightly distended. Cecostomy output appears normal. LABORATORIES: None. ASSESSMENT AND PLAN: 1. Plan to give the patient some mirtazapine for sleep. I have discontinued his Ativan. He will have his regular Xanax throughout the day to keep him calm. 2. The patient is on antibiotics. Do not have source, will likely discontinue those tomorrow. 3. Chronic anticoagulation is noted. The patient is subtherapeutic. We will make adjustments in this medication. 4. Do not resuscitate level 1. cc: Hua Stewart MD
[2019-05-11] MEDS: COUMADIN PO SCH (21:40)
[2019-05-11] MEDS: REMERON SOLTAB PO SCH (21:41)
[2019-05-12] MEDS: ZOSYN 2.25 GM in NS 50 ML IV SCH (03:03)
[2019-05-12] MEDS: CALMOSEPTINE OINTMENT TOP PRN ×2 (04:22→08:55)
[2019-05-12] MEDS: XANAX PO SCH ×2 (08:54→21:46)
[2019-05-12] MEDS: ALDACTONE PO SCH (08:54)
[2019-05-12] MEDS: VITAMIN B-12 PO SCH (08:55)
[2019-05-12] MEDS: FLOMAX PO SCH (08:55)
[2019-05-12] MEDS: AVODART PO SCH (08:55)
[2019-05-12] MEDS: COZAAR PO SCH (08:55)
[2019-05-12] MEDS: THERA M PLUS PO SCH (08:56)
--- NOTE | 2019-05-12 14:12 | PROGRESS NOTE ---
DATE: 05/12/2019 CHIEF COMPLAINT: The patient's significant other said he had another restless night where he slept intermittently, but then would be throwing off the covers and agitated. OBJECTIVE: Vital Signs: 99.0, 98, 21, 141/71, and 98% saturated on room air. General: The patient is awake, and seems a bit confused and agitated. He does try to talk but is difficult to understand. This is a baseline phenomenon for him. Cardiovascular: Irregularly irregular. Lungs: Clear. Abdomen: Slightly distended. He has normal cecostomy output. LABORATORIES: None. ASSESSMENT AND PLAN: 1. I am going to continue the patient's mirtazapine for sleep. He has his alprazolam during the day. I have encouraged the significant other to keep the lights on during the day, and the window shade up, and then turn it out at night so that it will be dark. I am reluctant to give him any other type of sedative as this has backfired on him in the past. 2. I am going to discontinue patient's antibiotics, cannot find a source for a metabolic encephalopathy. 3. We will recheck anticoagulation tomorrow. 4. Colon cancer aware. 5. Do not resuscitate level 1. cc: Hua Stewart MD
[2019-05-12] MEDS: REMERON SOLTAB PO SCH (21:46)
[2019-05-12] MEDS: COUMADIN PO SCH (21:46)
[2019-05-13 05:02] LABS: ALLEN TEST YES; BE 3.8 mmoll (-3.0-3.0); BLOOD TYPE ARTERIAL; HCO3-(ACT) 27.7 mmoll (20.0-26.0); METHB 0.4 % (0.0-1.5); O2(CT) 16.8 mL/dL (15.0-23.0); O2HB 91.7 % (95.0-99.0); PCO2(98.6) 46 mmHg (35-45); PO2(98.6) 64 mmHg (60-100); SAMPLE BLOOD; SAO2 92.7 % (95.0-100.0); pH(98.6) 7.41 (7.35-7.45)
[2019-05-13 05:03] LABS: MODALITY ROOM AIR
[2019-05-13 07:06] LABS: BASO# 0.03 X1000 (0.0-0.2); BASO% 0.4 % (0.0-0.8); EOS# 0.17 X1000 (0.0-0.7); EOS% 2.4 % (0.0-10.0); HEMATOCRIT 40.9 % (42.0-52.0); HEMOGLOBIN 12.7 g/dL (14.0-18.0); IMM GRAN# 0.02 X1000 (0.0-0.04); IMM GRAN% 0.3 % (0.0-0.5); LYMPH# 1.58 X1000 (1.2-3.4); LYMPH% 22.2 % (20.5-51.1); MCH 29.5 PG (27-31); MCHC 31.1 g/dL (33-37); MCV 94.9 FL (81-99); MONO# 0.76 X1000 (0.11-0.59); MONO% 10.7 % (1.7-9.3); NEUT# 4.57 X1000 (1.4-6.5); PLT 332 X1000 (130-400); RBC 4.31 XMIL (4.7-6.1); RDW 17.4 % (11.5-14.5); WBC 7.13 X1000 (4.8-10.8)
[2019-05-13 07:22] LABS: AGAP 10; ALB/GLOB RATIO 0.7; ALKALINE PHOSPHATASE 90 U/L (32-122); BUN 15 mg/dL (8-22); CALCIUM 8.8 mg/dL (8.8-10.2); CHLORIDE 98 mmol/L (98-107); COSMO 278; CREATININE 0.7 mg/dL (0.7-1.2); ESTIMATED GFR > 60; GLUCOSE 99 mg/dL (70-104); GOT 30 U/L (10-34); GPT 24 U/L (10-44); POTASSIUM 4.1 mmol/L (3.5-5.1); SODIUM 139 mmol/L (136-145); TCO2 31 mmol/L (25-35); TOTAL BILIRUBIN 0.51 mg/dL (0.20-1.00); TOTAL PROTEIN 7.1 g/dL (6.3-8.3)
[2019-05-13 07:25] LABS: INR 1.32; PROTIME 16.6 Seconds (11.0-16.0)
[2019-05-13] MEDS: COZAAR PO SCH (09:43)
[2019-05-13] MEDS: XANAX PO SCH ×2 (09:44→21:55)
[2019-05-13] MEDS: VITAMIN B-12 PO SCH (09:44)
[2019-05-13] MEDS: THERA M PLUS PO SCH (09:44)
[2019-05-13] MEDS: ALDACTONE PO SCH (09:44)
[2019-05-13] MEDS: AVODART PO SCH (09:44)
[2019-05-13] MEDS: FLOMAX PO SCH (09:44)
--- NOTE | 2019-05-13 11:27 | PROGRESS NOTE ---
DATE: 05/13/2019 SUBJECTIVE: The patient slept all night last night. He is infinitely more clear headed today. I had a discussion with the patient and his significant other, and they want to return to [facility] for completion of rehab as the patient has still not gained his feet sufficiently to go home. OBJECTIVE: Vital Signs: Temperature 97.6, pulse 93, respirations 22, blood pressure 131/65. Lungs: Clear. Cardiovascular: Irregularly irregular. Extremities: No peripheral edema. Cecostomy output appears normal. LABORATORY DATA: White count 7.1, hemoglobin 12.7. ABG shows a pH of 7.41, pCO2 of 46, CO2 of 64 on room air. Serum electrolytes are normal. ASSESSMENT AND PLAN: 1. The patient will continue mirtazapine for sleep. He has alprazolam during the day for calmness. He seems infinitely better today after having had a solid night's sleep. 2. Antibiotics have been discontinued. 3. Anticoagulation is stable on 3 mg of Coumadin. This may need to be adjusted in the future. 4. Colon cancer. Aware. 5. DO NOT RESUSCITATE level 1. 6. We will seek a bed at [facility] for rehabilitation. cc: Hua Stewart MD
[2019-05-13] MEDS: REMERON SOLTAB PO SCH (21:55)
[2019-05-13] MEDS: COUMADIN PO SCH (21:55)
[2019-05-14] MEDS: VITAMIN B-12 PO SCH (08:25)
[2019-05-14] MEDS: XANAX PO SCH ×2 (08:25→21:42)
[2019-05-14] MEDS: ALDACTONE PO SCH (08:25)
[2019-05-14] MEDS: AVODART PO SCH (08:25)
[2019-05-14] MEDS: FLOMAX PO SCH ×2 (08:25→21:42)
[2019-05-14] MEDS: COZAAR PO SCH (08:27)
[2019-05-14] MEDS: THERA M PLUS PO SCH (08:27)
[2019-05-14] MEDS ORDERED: NS 1,000 ML IV ONE (12:51)
--- NOTE | 2019-05-14 14:30 | PROGRESS NOTE ---
DATE: 05/14/2019 SUBJECTIVE: The patient and his significant other had no complaints, other than that he had another somewhat "rough night." He was periodically agitated and sat on the side of the bed, but then would go back to sleep eventually. He did not complain of any pain. After I interviewed and examined the patient, I got a call from the nurse taking care of him. She stated that when he got up in the chair, his heart rate increased, and his blood pressure dropped to 70 systolic. They eventually got him back into bed, and his pulse rate came down, but his blood pressure remained high. OBJECTIVE: Vital Signs: Initially, temperature 98.2 degrees, pulse rate 91, blood pressure 118/63, saturating 96% on room air. Later, his blood pressure is listed as 72/41 in the sitting position, with a heart rate of 110. General: At the time of my examination, the patient was alert, oriented, and operating at baseline. Lungs: Clear. Cardiovascular: Irregularly irregular at approximately 90 beats per minute. Extremities: No peripheral edema. Abdomen: Normal cecostomy output. The patient had staple line still in from his surgery a couple of weeks ago. LABORATORY DATA: None were drawn. ASSESSMENT AND PLAN: 1. The patient remains on mirtazapine for sleep and appetite. He has alprazolam for anxiety during the day. 2. Anticoagulation stable on 3 mg Coumadin. 3. Colon cancer. Aware. 4. DO NOT RESUSCITATE level 1. 5. We are seeking a rehab bed at [facility]. 6. I do not have an explanation for the patient's drop in blood pressure. I am going to discontinue his antihypertensive medication, and give him a 1 liter fluid bolus. We will continue to monitor the situation. 7. I will have the nurse take out his marcelle, and put in some Steri-Strips. cc: Hua Stewart MD
[2019-05-14] MEDS: REMERON SOLTAB PO SCH (21:42)
[2019-05-14] MEDS: COUMADIN PO SCH (21:42)
--- NOTE | 2019-05-15 10:21 | PROGRESS NOTE ---
DATE: 05/15/2019 SUBJECTIVE: The patient's significant other stated that he had another rough night last night, but this time was due to inability to urinate. He had to have straight catheterization to relieve that problem. He ate well this morning and seems to be functioning at baseline again. Yesterday, the patient had some drops in blood pressure and with fluid boluses has returned to normal. OBJECTIVE: Vital Signs: 97.5, 81, 18, 119/62, 97% saturated on room air. PHYSICAL EXAM: General: The patient is awake, alert, oriented, conversive and appropriate. Abdomen: Bowel sounds are present. He has normal cecostomy output. Lungs: Clear. Cardiovascular: Irregularly irregular. LABORATORY: No lab was drawn today. ASSESSMENT AND PLAN: 1. I was contacted yesterday about transfer to [facility]. Given the events from last night, I am going to hold him one additional day and try to get him out on Saturday morning. 2. The patient's anticoagulation is stable on 3 mg Coumadin. This will need to be rechecked in a few days. 3. Colon cancer. We are aware. 4. Do not resuscitate level 1. 5. Likely transfer to [facility] tomorrow. 6. In review of the patient's treatment course for multiple few hospitalizations he has had over the last several weeks, the patient was started on spironolactone in the hope to keep his potassium up, but it seems like every few days he gets behind the 8 ball on fluids and drops his pressure. I have lowered his dose of losartan to run a higher resting pressure. He will continue on tamsulosin. I have discontinued spironolactone. We will continue to monitor blood pressure and pulse rate. I have also added a low dose of digoxin to help control heart rate. 7. Nurse took out marcelle yesterday. The staple line looks good. 8. Continue physical therapy and getting up in the chair. cc: Hua Stewart MD
[2019-05-15] MEDS: LANOXIN PO SCH (11:15)
[2019-05-15] MEDS: AVODART PO SCH (11:15)
[2019-05-15] MEDS: THERA M PLUS PO SCH (11:16)
[2019-05-15] MEDS: VITAMIN B-12 PO SCH (11:16)
[2019-05-15] MEDS: XANAX PO SCH ×2 (11:16→20:53)
[2019-05-15] MEDS: ALDACTONE PO SCH (11:16)
[2019-05-15] MEDS: COUMADIN PO SCH (20:53)
[2019-05-15] MEDS: FLOMAX PO SCH (20:53)
[2019-05-15] MEDS: COZAAR PO SCH (20:53)
--- NOTE | 2019-05-16 09:10 | DISCHARGE SUMMARY ---
ADMISSION DATE: 05/09/2019 DISCHARGE DATE: 05/16/2019 DISCHARGE DIAGNOSES: 1. Altered mental status. 2. Hypotension. 3. Chronic atrial fibrillation. 4. Chronic anticoagulation. 5. Hypertension. 6. Tachycardia. 7. Stage IV colon cancer. 8. Recent cecal perforation with repair and cecostomy. 9. Weakness. HOSPITAL COURSE: This 83-year-old, white male has had a recent difficult course with obstructive symptomatology from a stage IV rectal cancer, which is unresectable. He initially had a small bowel obstruction and colonic obstruction, which resolved with conservative therapy in the hospital. He was sent home, but returned shortly thereafter with a cecal perforation and further obstructive symptomatology. He was taken to surgery and a cecostomy was performed. His tumor in his rectosigmoid junction is unresectable. The patient recovered from that and was discharged to [facility] on or about . A few days later, he returned with hypotension, confusion, tachycardia, and was admitted to the hospital. His electrolytes were remarkably normal, but until we got his blood pressure up with the aid of IV fluids and then controlled his heart rate, he did not really recover his sensorium. Attempts to use mirtazapine for sedation at night were unsuccessful. This was discontinued. The patient has been on alprazolam for more than 20 years and that is where the main stays, which keeps him calm. Over the hospitalization, he was only able to assist with transfer whereas he was walking prior to the onset of all these issues. He is discharged in good condition with the hopes that he can regain his feet and begin walking again. Hopefully, he will be able to be discharged home within a couple weeks. During the patient's first hospitalization, we had difficulty with his INR going up. Apparently, this has been an effect of the chemotherapy that he was previously on. He was given vitamin K approximately 2 weeks ago and his INR has never gotten back into the therapeutic range, but we were going very slowly with that given his age. Probably within a week of arrival at [facility], he will need to have his pro time checked and medications adjusted. cc: Hua Stewart MD
[2019-05-16] MEDS: VITAMIN B-12 PO SCH (09:18)
[2019-05-16] MEDS: THERA M PLUS PO SCH (09:18)
[2019-05-16] MEDS: AVODART PO SCH (09:18)
[2019-05-16] MEDS: XANAX PO SCH ×3 (09:18→21:00)
[2019-05-16] MEDS: LANOXIN PO SCH (09:18)
[2019-05-16] MEDS: COUMADIN PO SCH ×2 (19:43→21:00)
[2019-05-16] MEDS: COZAAR PO SCH ×2 (19:43→21:00)
[2019-05-16] MEDS: FLOMAX PO SCH ×2 (19:44→21:00)
[2019-05-17] MEDS: AVODART PO SCH (08:47)
[2019-05-17] MEDS: XANAX PO SCH ×3 (08:47→20:30)
[2019-05-17] MEDS: THERA M PLUS PO SCH (08:47)
[2019-05-17] MEDS: VITAMIN B-12 PO SCH (08:47)
[2019-05-17] MEDS: LANOXIN PO SCH (08:48)
--- NOTE | 2019-05-17 09:40 | PROGRESS NOTE ---
DATE: 05/17/2019 SUBJECTIVE: The patient was discharged yesterday but never left the hospital. Apparently, there was no intake person at [facility] for admission yesterday or today. I found this out from the patient and his significant other. There is no note on the chart. There was no communication between myself or my partners control panel operator about the hold up on discharge. The patient had a normal and solid night's sleep last night. He was not agitated. He is eating well. He did well with physical therapy yesterday. He had no difficulty tolerating his medications at the present time. ASSESSMENT: The patient is held over until tomorrow morning when hopefully there is an intake person at [facility] and we can get him transferred over to rehab. cc: Hua Stewart MD
[2019-05-17] MEDS: COZAAR PO SCH ×2 (19:53→20:30)
[2019-05-17] MEDS: COUMADIN PO SCH ×2 (19:54→20:29)
[2019-05-17] MEDS: FLOMAX PO SCH ×2 (19:54→20:30)
[2019-05-18 07:59] VITALS: BP 128/68
--- NOTE | 2019-05-18 08:47 | PROGRESS NOTE ---
DATE: 05/18/2019 The patient was scheduled for transfer to the rehab unit on Saturday, but they did not have an intake person, so he remained in the hospital Saturday and Saturday. He is still discharged to [facility] this morning. The patient and significant other stated that he has been eating well. He has been working with Physical Therapy, although he has not gained his feet yet. He slept a little bit unsoundly last night because he was worried or anxious about the transfer to [facility]. He seems to be operating at baseline on my exam today. His lungs are clear. Cardiovascular is irregularly irregular, but rate controlled. The patient is cleared for transfer. cc: Hua Stewart MD
[2019-05-18] MEDS: AVODART PO SCH (09:34)
[2019-05-18] MEDS: LANOXIN PO SCH (09:35)
[2019-05-18] MEDS: XANAX PO SCH (09:35)
[2019-05-18] MEDS: THERA M PLUS PO SCH (09:35)
[2019-05-18] MEDS: VITAMIN B-12 PO SCH (09:35)
== END 2019-05-18 17:37 | DRG 947 ==
LOC: SUPCPDRO → ED 14:53 → 3N 20:10
PROVIDERS: ADMIT Internal Medicine; ATTEND Internal Medicine